=== PATIENT | male | born 1945 | race Caucasian/White ===

== ENCOUNTER 2018-03-04 09:49 | Outpatient (CLI) | payer OTHER, SELFPAY ==
[2018-03-04 11:10] LABS: Hemoglobin A1C 7.4 % (4.5-6.2)
[2018-03-04 11:19] LABS: GGT 45 U/L (15-85); Glucose 205 mg/dL (70-100)
== END 2018-03-04 10:09 ==
PROVIDERS: PCP Emergency Medicine; Visit Provider Emergency Medicine
DX: R73.09 Other abnormal glucose (principal); F10.10 Alcohol abuse, uncomplicated
CPT/HCPCS: 36415; 82947; 82977; 83036

== ENCOUNTER 2018-11-23 15:24 | Inpatient (IN) | payer OTHER, SELFPAY ==
[2018-11-23 15:27] VITALS: BP 108/67; PULSE 81; RESP 16; TEMP 36.8; O2SAT 97
--- NOTE | 2018-11-23 16:16 | W.ED.GENAD ---
Discharge Plan Disposition Patient Disposition: [facility] INPATIENT Condition: Improving Discharge Details Chief Complaint: Abd Prob Clinical Impression: Acute cholecystitis Primary Care Provider: Flavio Wick ED Provider: Moi Dobson Home Meds and New Rx's Prescriptions: No Action epinephrine 0.3 MG/0.3 ML auto-injector 0.3 mg IM PRN Qty: 3 RF: 4 betamethasone, augmented [Diprolene] 60 ML lotion 60 ml Topical DAILY Qty: 1 RF: 2 triamcinolone acetonide 60 ML lotion 60 ml Topical DAILY Qty: 1 RF: 6 omeprazole 20 mg capsule,delayed release(DR/EC) 20 mg PO DAILY Qty: 90 RF: 4 hydrocodone-acetaminophen 5-325 mg Tablet 2 tab PO Q6H RF: 0 amoxicillin-pot clavulanate 875-125 mg Tablet 1 tab PO Q12H RF: 0 Medical Decision Making This is a 73-year-old gentleman who presents today for right upper quadrant pain. 3 days ago he was seen at a [facility] where CT scan showed evidence of diverticulitis, and he was started on Augmentin. The next day he was reassessed as he had worsening pain, labs were done which showed an elevated bilirubin, no imaging at that time. Eventually discharged with concern for gallbladder pathology. He presents today for continued symptoms, he is vomiting 5 times today, he is unable to keep any solids down, but is able to take small sips of water that stays down. Pain is in the right upper quadrant, with slight radiation to his back. No tearing sensation, no chest pain. Physical exam demonstrates positive Wilde sign. Limited bedside ultrasound shows a distended gallbladder, hyperechoic edges, and a gallbladder wall thickness of 8 mm. Positive sonographic Wilde sign. We will perform laboratory evaluation, repeat CT scan for further assessment has no formal ultrasonography is present at this time, and for further differentiation of his previously diagnosed diverticulitis. Will hydrate, give Toradol for pain. 6:15 PM Laboratory work-up demonstrates no white count, platelets are low at 81. Patient states that he does drink 3 beers per day but denies any other severe or significant alcohol. No history of thrombocytopenia. Electrolytes are benign. Renal function stable. Bilirubin 1.6, conjugated 0.55. Lipase is normal. Urinalysis is negative for any evidence of significant infection. CT scan results per virtual radiology to confirm acute cholecystitis. We did contact Dr. Machado and discussed the case with her. We did confirm that platelets can be ordered for the patient. She would like the patient admitted and started on Zosyn. Expected surgery tomorrow. Patient will be made n.p.o.. Dr. Machado has asked that I put in bridging orders, and I will place these. I have extensively reviewed the treatment plan with the patient. I have addressed all patient concerns at this time. I have also discussed the plan with the admitting physician and they agree with the current assessment and plan and have agreed to assume responsibility for the patient. All parties demonstrate verbal understanding and agreement with our assessment and plan at this time. FINDINGS: Minimal basilar atelectasis. Abnormal appearing gallbladder with gallbladder wall thickening and surrounding inflammation suggesting acute cholecystitis. No biliary ductal dilatation. No bowel obstruction. No significant free fluid. Appendix is normal. Small fat-containing left inguinal hernia. No obstructive uropathy. IMPRESSION: Findings consistent with acute cholecystitis. Dictated and Authenticated by: Sascha Noriega MD. Ordering:GERARD Prater MD HPI General Date/Time Provider Initiated Documentation: 11/23/18 15:24. HPI Narrative: This is a 73-year-old male with a past medical history of BPH, previous tobacco abuse, who presents today for evaluation of abdominal pain. Pain started 3 to 4 days ago while he was vacationing in [place], at that time he went to an [facility] where he had a CT scan and labs giving him the diagnosis of diverticulitis, he was started on Augmentin. The next day his pain worsened and localized in the right upper quadrant. He returned to that same ED, labs were drawn, bilirubin was notably elevated at 1.8, no additional imaging was done at that time. No ultrasound availability at that time either per patient. He was eventually discharged home, and he returns today to our emergency department for continued pain, vomiting x5 today, anorexia with last meal being 3 days ago, and continued notable right upper quadrant pain. Pain is made worse with movement, palpation, and hitting every bump on the way up on the road. He denies any previous abdominal surgeries. He denies any fever chills hematochezia hematemesis, melena or acholic stool. He has no other complaints at this time. He has been taking the Augmentin. NSAIDs are not improving his symptoms. Related Data Home Medications Medication Instructions Recorded Confirmed epinephrine 0.3 mg IM PRN #3 01/05/13 11/23/18 betamethasone, augmented 60 ml TOPICAL DAILY #1 script 02/25/15 11/23/18 [Diprolene 0.05% Lotion] triamcinolone acetonide 60 ml TOPICAL DAILY #1 script 04/09/17 11/23/18 omeprazole 20 mg capsule,delayed 20 mg PO DAILY #90 tab-cap 02/18/18 11/23/18 release amoxicillin-pot clavulanate 1 tab PO Q12H 11/23/18 11/23/18 hydrocodone-acetaminophen 2 tab PO Q6H 11/23/18 11/23/18 Previous Rx's Medication Instructions Recorded triamcinolone acetonide 60 ml TOPICAL DAILY #1 script 04/09/17 omeprazole 20 mg capsule,delayed 20 mg PO DAILY #90 tab-cap 02/18/18 release Allergies Allergy/AdvReac Type Severity Reaction Status Date / Time venom-honey bee Allergy Severe HIVES Verified 11/23/18 15:32 General Stated Complaint: Abd Prob ANY: 3 Review of Systems Review of Systems All systems reviewed & are unremarkable except as noted in HPI and below PFSH Medical History Adenomatous colon polyp BPH (benign prostatic hypertrophy) Lumbago Surgical History Extraction of cataract Family History Mother Diabetes Heart disease Hyperlipidemia Stroke Father No problems noted. Sister No problems noted. 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 3.ENT: Atraumatic external nose and ears. Moist MM. Neck: Symmetric, trachea midline, No thyromegaly. 4.CVS: +S1/S2, No murmurs or gallops. Peripheral pulses 2+ and equal in all extremities. Brisk capillary refill in all extremities. 5.RESP: Unlabored respiratory effort. Clear to auscultation bilaterally. No wheezes rales or rhonchi 6.GI: Soft, notable right upper quadrant tenderness, mild epigastric tenderness. No right lower quadrant tenderness. No left-sided abdominal pain. No flank or CVA tenderness. Positive Wilde sign. No pain at McBurney's point. 7.MSK: Normocephalic/Atraumatic, Extremities w/o deformity or ttp No cyanosis or clubbing, Normal movement of all extremities 8.Skin: Warm, Dry. No rashes or lesions. 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 Sensation grossly intact, no focal neurologic deficits. 10.Psych: (AAO) x3. Appropriate mood and affect Course Vital Signs Temperature 36.8 C 11/23/18 15:27 Pulse 81 11/23/18 15:27 Respiratory Rate 16 11/23/18 15:27 Blood Pressure 108/67 11/23/18 15:27 Pulse Oximetry 97 11/23/18 15:27 Temperature 36.8 C 11/23/18 15:27 Temperature Source Temporal Artery Scan 11/23/18 15:27 Pulse 81 11/23/18 15:27 Respiratory Rate 16 11/23/18 15:27 Respiratory Effort Non-Labored 11/23/18 15:27 Blood Pressure 108/67 11/23/18 15:27 Blood Pressure Position Sitting 11/23/18 15:27 Pulse Oximetry 97 11/23/18 15:27 Pain Level 8 11/23/18 15:27
--- NOTE | 2018-11-23 16:23 | ED.GENADUL_ITS ---
Discharge Plan Disposition Patient Disposition: [facility] INPATIENT Condition: Improving Discharge Details Chief Complaint: Abd Prob Clinical Impression: Acute cholecystitis Primary Care Provider: Flavio Wick ED Provider: Moi Dobson Home Meds and New Rx's Prescriptions: No Action epinephrine 0.3 MG/0.3 ML auto-injector 0.3 mg IM PRN Qty: 3 RF: 4 betamethasone, augmented [Diprolene] 60 ML lotion 60 ml Topical DAILY Qty: 1 RF: 2 triamcinolone acetonide 60 ML lotion 60 ml Topical DAILY Qty: 1 RF: 6 omeprazole 20 mg capsule,delayed release(DR/EC) 20 mg PO DAILY Qty: 90 RF: 4 hydrocodone-acetaminophen 5-325 mg Tablet 2 tab PO Q6H RF: 0 amoxicillin-pot clavulanate 875-125 mg Tablet 1 tab PO Q12H RF: 0 Medical Decision Making This is a 73-year-old gentleman who presents today for right upper quadrant pain. 3 days ago he was seen at a [facility] where CT scan showed evidence of diverticulitis, and he was started on Augmentin. The next day he was reassessed as he had worsening pain, labs were done which showed an elevated bilirubin, no imaging at that time. Eventually discharged with concern for gallbladder pathology. He presents today for continued symptoms, he is vomiting 5 times today, he is unable to keep any solids down, but is able to take small sips of water that stays down. Pain is in the right upper quadrant, with slight radiation to his back. No tearing sensation, no chest pain. Physical exam demonstrates positive Wilde sign. Limited bedside ultrasound shows a distended gallbladder, hyperechoic edges, and a gallbladder wall thickness of 8 mm. Positive sonographic Wilde sign. We will perform laboratory evaluation, repeat CT scan for further assessment has no formal ultrasonography is present at this time, and for further differentiation of his previously diagnosed diverticulitis. Will hydrate, give Toradol for pain. 6:15 PM Laboratory work-up demonstrates no white count, platelets are low at 81. Rosalinad ent states that he does drink 3 beers per day but denies any other severe or significant alcohol. No history of thrombocytopenia. Electrolytes are benign. Renal function stable. Bilirubin 1.6, conjugated 0.55. Lipase is normal. Urinalysis is negative for any evidence of significant infection. CT scan results per virtual radiology to confirm acute cholecystitis. We did contact Dr. Machado and discussed the case with her. We did confirm that platelets can be ordered for the patient. She would like the patient admitted and started on Zosyn. Expected surgery tomorrow. Patient will be made n.p.o.. Dr. Machado has asked that I put in bridging orders, and I will place these. I have extensively reviewed the treatment plan with the patient. I have addressed all patient concerns at this time. I have also discussed the plan with the admitting physician and they agree with the current assessment and plan and have agreed to assume responsibility for the patient. All parties demonstrate verbal understanding and agreement with our assessment and plan at this time. FINDINGS: Minimal basilar atelectasis. Abnormal appearing gallbladder with gallbladder wall thickening and surrounding inflammation suggesting acute cholecystitis. No biliary ductal dilatation. No bowel obstruction. No significant free fluid. Appendix is normal. Small fat-containing left inguinal hernia. No obstructive uropathy. IMPRESSION: Findings consistent with acute cholecystitis. Dictated and Authenticated by: Sascha Noriega MD. Ordering:GERARD Prater MD HPI General Date/Time Provider Initiated Documentation: 11/23/18 15:24 . HPI Narrative: This is a 73-year-old male with a past medical history of BPH, previous tobacco abuse, who presents today for evaluation of abdominal pain. Pain started 3 to 4 days ago while he was vacationing in [place], at that time he went to an [facility] where he had a CT scan and labs giving him the diagnosis of diverticulitis, he was started on Augmentin. The next day his pain worsened and localized in the right upper quadrant. He returned to that same ED, labs were drawn, bilirubin was notably elevated at 1.8, no additional imaging was done at that time. No ultrasound availability at that time either per patient. He was eventually discharged home, and he returns today to our emergency department for continued pain, vomiting x5 today, anorexia with last meal being 3 days ago, and continued notable right upper quadrant pain. Pain is made worse with movement, palpation, and hitting every bump on the way up on the road. He denies any previous abdominal surgeries. He denies any fever chills hematochezia hematemesis, melena or acholic stool. He has no other complaints at this time. He has been taking the Augmentin. NSAIDs are not improving his symptoms. Related Data Home Medications Medication Instructions Recorded Confirmed epinephrine 0.3 mg IM PRN #3 01/05/13 11/23/18 betamethasone, augmented 60 ml TOPICAL DAILY #1 script 02/25/15 11/23/18 [Diprolene 0.05% Lotion] triamcinolone acetonide 60 ml TOPICAL DAILY #1 script 04/09/17 11/23/18 omeprazole 20 mg capsule,delayed 20 mg PO DAILY #90 tab-cap 02/18/18 11/23/18 release amoxicillin-pot clavulanate 1 tab PO Q12H 11/23/18 11/23/18 hydrocodone-acetaminophen 2 tab PO Q6H 11/23/18 11/23/18 Previous Rx's Medication Instructions Recorded triamcinolone acetonide 60 ml TOPICAL DAILY #1 script 04/09/17 omeprazole 20 mg capsule,delayed 20 mg PO DAILY #90 tab-cap 02/18/18 release Allergies Allergy/AdvReac Type Severity Reaction Status Date / Time venom-honey bee Allergy Severe HIVES Verified 11/23/18 15:32 General Stated Complaint: Abd Prob ANY: 3 Review of Systems Review of Systems All systems reviewed & are unremarkable except as noted in HPI and below PFSH Medical History Adenomatous colon polyp BPH (benign prostatic hypertrophy) Lumbago Surgical History Extraction of cataract Family History Mother Diabetes Heart disease Hyperlipidemia Stroke Father No problems noted. Sister No problems noted. 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 3.ENT: Atraumatic external nose and ears. Moist MM. Neck: Symmetric, trachea midline, No thyromegaly. 4.CVS: +S1/S2, No murmurs or gallops. Peripheral pulses 2+ and equal in all extremities. Brisk capillary refill in all extremities. 5.RESP: Unlabored respiratory effort. Clear to auscultation bilaterally. No wheezes rales or rhonchi 6.GI: Soft, notable right upper quadrant tenderness, mild epigastric tenderness. No right lower quadrant tenderness. No left-sided abdominal pain. No flank or CVA tenderness. Positive Wilde sign. No pain at McBurney's point. 7.MSK: Normocephalic/Atraumatic, Extremities w/o deformity or ttp No cyanosis or clubbing, Normal movement of all extremities 8.Skin: Warm, Dry. No rashes or lesions. 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 Sensation grossly intact, no focal neurologic deficits. 10.Psych: (AAO) x3. Appropriate mood and affect Course Vital Signs Temperature 36.8 C 11/23/18 15:27 Pulse 81 11/23/18 15:27 Respiratory Rate 16 11/23/18 15:27 Blood Pressure 108/67 11/23/18 15:27 Pulse Oximetry 97 11/23/18 15:27 Temperature 36.8 C 11/23/18 15:27 Temperature Source Temporal Artery Scan 11/23/18 15:27 Pulse 81 11/23/18 15:27 Respiratory Rate 16 11/23/18 15:27 Respiratory Effort Non-Labored 11/23/18 15:27 Blood Pressure 108/67 11/23/18 15:27 Blood Pressure Position Sitting 11/23/18 15:27 Pulse Oximetry 97 11/23/18 15:27 Pain Level 8 11/23/18 15:27
[2018-11-23 16:40] LABS: Abs Immature Grans 0.04 k/cumm (0.0-0.09); Absolute Eosinophil Count 0.01 k/cumm (0.0-0.7); Absolute Lymphocyte Count 0.39 k/cumm (1.2-3.4); Absolute Monocyte Count 1.27 k/cumm (0.11-0.7); Absolute Neutrophil Count 6.99 k/cumm (1.2-6.7); Eosinophils % 0.1; HCT 43.7 % (40.0-50.0); HGB 15.1 g/dL (13.5-17.5); Immature Grans % 0.5; Lymphocytes % 4.5; Mean Corp. HGB Concentration 34.6 g/dL (32.0-36.0); Mean Corpuscular Hemoglobin 32.1 pg (27.0-33.0); Mean Corpuscular Volume 92.8 fL (80-95); Mean Platelet Volume 11.6 fL (8.0-11.0); Monocytes % 14.6; Neutrophils % 80.3; RBC 4.71 m/cumm (4.50-6.00); RBC Distribution Width 12.2 % (11.8-14.1)
[2018-11-23 16:43] LABS: Platelet Count 81 x1000/uL (130-400)
[2018-11-23 16:50] LABS: Lipase 63 U/L (73-393)
[2018-11-23 16:51] LABS: Bilirubin, Direct 0.55 mg/dL (0.00-0.20)
[2018-11-23 16:53] LABS: ALT 47 U/L (12-78); AST 29 U/L (15-37); Albumin 3.4 g/dL (3.4-5.0); Alkaline Phosphatase 60 U/L (46-116); Anion Gap 9.6 mmol/L (3-11); BUN 17 mg/dL (7-18); Bilirubin, Total 1.6 mg/dL (0.2-1.0); CO2 27.4 mmol/L (21.0-32.0); CREATININE 1.09 mg/dL (0.70-1.30); Calcium 8.6 mg/dL (8.5-10.1); Chloride 95 mmol/L (98-107); Glucose 152 mg/dL (70-100); Sodium 132 mmol/L (136-145); Total Protein 7.6 g/dL (6.4-8.2)
[2018-11-23 17:02] LABS: Diff Comment PLT Morph Reviewed; RBC Morphology Normal
[2018-11-23] MEDS: Omnipaque 350 MG/ML 100 ML BTL IJ (17:30)
--- NOTE | 2018-11-23 17:35 | DI.CT_ITS ---
SYMPTOM/DIAGNOSIS: RUQ PAIN, THICKENED GB WALL, RECENT DIVERTICULITIS CT ABDOMEN AND PELVIS: There are no prior comparison exams. Images were performed from the lung bases through the ischial tuberosities after IV and without oral contrast. The gallbladder is abnormally distended and shows wall thickening as well as stranding in the surrounding fat. No calcified stones or biliary dilatation is seen. The liver shows mild diffuse fatty infiltration. The spleen, pancreas, adrenals and kidneys are unremarkable. The appendix appears normal. There is no bowel dilatation or inflammatory changes. The bladder and prostate are unremarkable. There is a small fatty containing left inguinal hernia. The aorta is normal in diameter and shows mild calcification. There are mild degenerative change in the spine. The lung bases show mild dependent changes and atelectasis. IMPRESSION: Findings are consistent with acute cholecystitis. No biliary dilatation is seen.
[2018-11-23] MEDS: Normal Saline 1,000 ML 1000 ML IV (17:43)
[2018-11-23] MEDS: Ketorolac 30 MG/ML VIAL IVP (17:44)
[2018-11-23] MEDS: Normal Saline Flush 10 ML SYR IVP ×2 (17:44→20:33)
[2018-11-23 17:47] LABS: Bilirubin Small (Negative); Blood Trace-intact (Negative); Clarity Clear; Glucose Negative (Negative); Ketones 40 mg/dL (Negative); Leukocyte Esterase Negative (Negative); Nitrite Negative (Negative); Specific Gravity 1.015 (1.005-1.025); pH 5.5 (5-8)
[2018-11-23 17:50] LABS: Bacteria Negative HPF (Negative); C & S Indicated? Yes; Casts Negative LPF (Negative); Crystals Negative HPF (Negative); Epithelial Cells Rare HPF (Negative); Mucus Negative (Negative); RBC 0-2 (0-2)
--- NOTE | 2018-11-23 18:00 | DI.VRAD_ITS ---
EXAM: CT Abdomen and Pelvis With Contrast EXAM DATE/TIME: 11/23/2018 4:15 PM CLINICAL HISTORY: 73 years old, male; Abdominal pain; Localized; Right upper quadrant (ruq); Patient HX: Ruq, thickness on gb wall, recent diverticulitis. TECHNIQUE: Imaging protocol: Axial computed tomography images of the abdomen and pelvis with intravenous contrast. Coronal and sagittal reformatted images were created and reviewed. Radiation optimization: All CT scans at this facility use at least one of these dose optimization techniques: automated exposure control; mA and/or kV adjustment per patient size (includes targeted exams where dose is matched to clinical indication); or iterative reconstruction. Contrast material: OMNIPAQUE 350; Contrast volume: 100 ml; Contrast route: IV; COMPARISON: No relevant prior studies available. FINDINGS: Minimal basilar atelectasis. Abnormal appearing gallbladder with gallbladder wall thickening and surrounding inflammation suggesting acute cholecystitis. No biliary ductal dilatation. No bowel obstruction. No significant free fluid. Appendix is normal. Small fat-containing left inguinal hernia. No obstructive uropathy. IMPRESSION: Findings consistent with acute cholecystitis. Dictated and Authenticated by: Sascha Noriega MD. Ordering:GERARD Prater MD
[2018-11-23] MEDS: PIPERACILLIN/TAZO 3.375 GM in Normal Saline 50 ML IVPB (18:26)
--- NOTE | 2018-11-23 18:31 | NUR.NOTE ---
pt medicated as per mdo iv antibiotics infusing Nursing Note:
[2018-11-23 19:16] VITALS: BP 97/52; PULSE 73; RESP 16; O2SAT 95
[2018-11-23 19:21] VITALS: BP 97/52; PULSE 73; RESP 16; O2SAT 95
[2018-11-23 19:33] VITALS: BP 111/73; PULSE 77; RESP 16; TEMP 35.8; O2SAT 94
[2018-11-23 19:34] VITALS: BP 111/73; PULSE 77; RESP 16; TEMP 35.8; O2SAT 94
--- NOTE | 2018-11-23 20:10 | W.PM.HP.N ---
Date of service: 11/23/18 Time of Service: 20:11 Assessment and Plan (1) Acute cholecystitis: Current visit: Yes Status: Acute 73 y/o male with findings of acute cholecystitis on imaging and by history. I reviewed CT films and agree with ADS interpretation. No gallstones or bile duct dilation noted. No signs of diverticulitis. Admitted for IV antibiotics, IVF, bowel rest. Patient started on Zosyn. LFTs and lipase unremarkable except for total bilirubin of 1.6 with 0.6 direct component. Anticipate lap samantha on this admission. Will sign out to Dr. Mahmood in the am. (2) Thrombocytopenia: Current visit: Yes Status: Chronic Thrombocytopenia with 81k platelet count. Decreased from 180k from 2017. ? drug related. Follow-up CBC in am. Patient is typed and screened. I am told that platelets can be ordered from [facility] if needed. May need further workup if persistent. (3) Heavy alcohol use: Current visit: No Status: Acute CIWA protocol ordered. History of Present Illness Chief Complaint: Abdominal pain Narrative: 73 y/o male admitted through the ED at [facility]. Patient seen with 2 adult children at bedside. Patient apparently had had some intermittent abdominal discomfort for the past week or so. He was out of town in [place], [place] on Saturday ( 2 days ago) when he developed severe RUQ pain. He noted some subjective fevers and chills with low grade temp up to 99.5 (+) nausea and emesis. Last emesis was yesterday. He is tolerating water but has not tried to eat in 2 days for fear of pain. He was seen in the ED in [place] on 11/21/[address]. He was diagnosed with possible diverticulitis and started on Augmentin which he has been taking. His pain worsened on 11/22/18 and he returned to the same ED. He was told that there was no ultrasound available and that he may have to be transferred to another facility. He decided to return home to [place] and came to the ED at [facility] today. His pain has remained localized in the RUQ. He denies constipation or urinary symptoms. He denies any history of similar pain or fatty food intolerance. Total bilirubin was reportedly mildly elevated at 1.8 in [place]. It is 1.6 today. His platelet count was also noted to be below normal at 81K. It was last documented at 180k in 2017. He denies any known history of thrombocytopenia. He is on Prilosec for GERD. He denies any other chronic medical issues. He has had no prior abdominal surgeries. He had an EGD and colonoscopy about 3 years ago. He admits to drinking an average of 3 beers/day. Review of Systems Constitutional Reports system reviewed and no additional complaints, except as docu, Reports chills and Reports fever(s) Cardiovascular Denies chest pain, Denies rapid heart rate and Denies dyspnea Respiratory Denies cough and Denies dyspnea Gastrointestinal Reports abdominal pain, Denies constipation, Reports heartburn, Reports nausea and Reports vomiting Genitourinary Denies hematuria and Denies dysuria [facility] Medical History Adenomatous colon polyp BPH (benign prostatic hypertrophy) Lumbago Surgical History Extraction of cataract Family History Mother Diabetes Heart disease Hyperlipidemia Stroke Father No problems noted. Sister No problems noted. 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 Pets and animals: No What type of physical activity do you participate in: decline to answer Dorothy/Evangelical: Religious Special dorothy needs: No Do you feel safe at home: Yes Do you feel safe in your relationship?: Yes Meds Home Medications Medication Instructions Recorded Confirmed Type epinephrine 0.3 mg IM PRN #3 01/05/13 11/23/18 History betamethasone, augmented 60 ml TOPICAL DAILY #1 script 02/25/15 11/23/18 History [Diprolene 0.05% Lotion] triamcinolone acetonide 60 ml TOPICAL DAILY #1 script 04/09/17 11/23/18 Rx omeprazole 20 mg capsule,delayed 20 mg PO DAILY #90 tab-cap 02/18/18 11/23/18 Rx release amoxicillin-pot clavulanate 1 tab PO Q12H 11/23/18 11/23/18 History hydrocodone-acetaminophen 2 tab PO Q6H 11/23/18 11/23/18 History Allergies Allergy/AdvReac Type Severity Reaction Status Date / Time venom-honey bee Allergy Severe HIVES Verified 11/23/18 15:32 Exam Const General: cooperative, comfortable, no acute distress and well developed Nutritional Appearance: obese Orientation: alert and oriented x3 HENMT Head: normocephalic and atraumatic Eyes Sclera: sclerae normal Neck Neck: supple, no tracheal deviation and no JVD Resp Effort & Inspection: normal respiratory effort and able to speak in complete sentences Cardio Jugular venous pressure: no JVD Rate: regular rate Rhythm: regular rhythm GI Inspection: non-distended Palpation: soft, not firm, no guarding, no masses, not rigid and tender in the RUQ (moderately tender in epigastrium and RUQ) and Wilde's sign positive Skin General skin exam: no rashes or lesions noted and no jaundice Results Imaging Abdomen CT scan report/results: report reviewed and image reviewed CT scan - pelvis: report reviewed and image reviewed Imaging Studies: Patient Name: Gricelda MAI #: [id number]: ER Ordering Provider: : REG ER Primary Care Provider: Flavio Wick of Exam: 11/23/18Sex: M : 1945ge: 73 Exam(s) EXAM: CT Abdomen and Pelvis With Contrast EXAM DATE/TIME: 11/23/2018 4:15 PM CLINICAL HISTORY: 73 years old, male; Abdominal pain; Localized; Right upper quadrant (ruq); Patient HX: Ruq, thickness on gb wall, recent diverticulitis. TECHNIQUE: Imaging protocol: Axial computed tomography images of the abdomen and pelvis with intravenous contrast. Coronal and sagittal reformatted images were created and reviewed. Radiation optimization: All CT scans at this facility use at least one of these dose optimization techniques: automated exposure control; mA and/or kV adjustment per patient size (includes targeted exams where dose is matched to clinical indication); or iterative reconstruction. Contrast material: OMNIPAQUE 350; Contrast volume: 100 ml; Contrast route: IV; COMPARISON: No relevant prior studies available. FINDINGS: Minimal basilar atelectasis. Abnormal appearing gallbladder with gallbladder wall thickening and surrounding inflammation suggesting acute cholecystitis. No biliary ductal dilatation. No bowel obstruction. No significant free fluid. Appendix is normal. Small fat-containing left inguinal hernia. No obstructive uropathy. IMPRESSION: Findings consistent with acute cholecystitis. Dictated and Authenticated by: Sascha Noriega MD. Ordering:GERARD Prater MD Ordered By: CC: Dictated By: Reports vrad 11/23/18 1615 11/23/18 1800 Transcribed By: Emily Thomas This is privileged, confidential information intended only for the provider named. Any use or distribution by any person other than this provider is strictly prohibited. If you receive this report in error, please notify us immediately at [phone] and return the original report to us at the address above. Thank-you. Labs : 11/23/18 16:29 11/23/18 16:29 Laboratory Results - last 24 hr 11/23/18 11/23/18 11/23/18 16:29 16:29 16:29 WBC 8.70 RBC 4.71 Hgb 15.1 Hct 43.7 MCV 92.8 MCH 32.1 MCHC 34.6 RDW 12.2 Plt Count 81 L MPV 11.6 H Immature Gran % 0.5 Neutrophils % 80.3 Lymphocytes % 4.5 Monocytes % 14.6 Eosinophils % 0.1 Basophils % 0.0 Absolute Neutrophils 6.99 H Absolute Lymphocytes 0.39 L Absolute Monocytes 1.27 H Absolute Eosinophils 0.01 Absolute Basophils 0.00 Differential Comment Plt morph reviewed RBC Morphology Normal Sodium 132 L Potassium 4.0 Chloride 95 L Carbon Dioxide 27.4 Anion Gap 9.6 BUN 17 Creatinine 1.09 Estimated GFR/1.73 m2 >= 60.00 Glucose 152 H Calcium 8.6 Total Bilirubin 1.6 H Conjugated Bilirubin 0.55 H AST 29 ALT 47 Alkaline Phosphatase 60 Total Protein 7.6 Albumin 3.4 Lipase Urine Color Urine Clarity Urine pH Ur Specific [place] Urine Protein Urine Ketones Urine Blood Urine Nitrite Urine Bilirubin Urine Urobilinogen Ur Leukocyte Esterase Urine RBC Urine WBC Ur Epithelial Cells Urine Crystals Urine Bacteria Urine Casts Urine Mucus Ur Culture Indicated? Urine Glucose 11/23/18 11/23/18 16:29 17:33 WBC RBC Hgb Hct MCV MCH MCHC RDW Plt Count MPV Immature Gran % Neutrophils % Lymphocytes % Monocytes % Eosinophils % Basophils % Absolute Neutrophils Absolute Lymphocytes Absolute Monocytes Absolute Eosinophils Absolute Basophils Differential Comment RBC Morphology Sodium Potassium Chloride Carbon Dioxide Anion Gap BUN Creatinine Estimated GFR/1.73 m2 Glucose Calcium Total Bilirubin Conjugated Bilirubin AST ALT Alkaline Phosphatase Total Protein Albumin Lipase 63 L Urine Color Radha Urine Clarity Clear Urine pH 5.5 Ur Specific [place] 1.015 Urine Protein 30 H Urine Ketones 40 H Urine Blood Trace-intact H Urine Nitrite Negative Urine Bilirubin Small H Urine Urobilinogen 1.0 H Ur Leukocyte Esterase Negative Urine RBC 0-2 Urine WBC 5-10 Ur Epithelial Cells Rare Urine Crystals Negative Urine Bacteria Negative Urine Casts Negative Urine Mucus Negative Ur Culture Indicated? Yes Urine Glucose Negative Last Vital Signs Temp 35.8 C L 11/23/18 19:34 Pulse 77 11/23/18 19:34 Resp 16 11/23/18 19:34 BP 111/73 11/23/18 19:34 Pulse Ox 94 L 11/23/18 19:34
--- NOTE | 2018-11-23 20:17 | HPE_ITS ---
Date of service: 11/23/18 Time of Service: 20:11 Assessment and Plan (1) Acute cholecystitis: Current visit: Yes Status: Acute 73 y/o male with findings of acute cholecystitis on imaging and by history. I reviewed CT films and agree with ADS interpretation. No gallstones or bile duct dilation noted. No signs of diverticulitis. Admitted for IV antibiotics, IVF, bowel rest. Patient started on Zosyn. LFTs and lipase unremarkable except for total bilirubin of 1.6 with 0.6 direct component. Anticipate lap samantha on this admission. Will sign out to Dr. Mahmood in the am. (2) Thrombocytopenia: Current visit: Yes Status: Chronic Thrombocytopenia with 81k platelet count. Decreased from 180k from 2017. ? drug related. Follow-up CBC in am. Patient is typed and screened. I am told that platelets can be ordered from [facility] if needed. May need further workup if persistent. (3) Heavy alcohol use: Current visit: No Status: Acute CIWA protocol ordered. History of Present Illness Chief Complaint: Abdominal pain Narrative: 73 y/o male admitted through the ED at [facility]. Patient seen with 2 adult children at bedside. Patient apparently had had some intermittent abdominal discomfort for the past week or so. He was out of town in [place], [place] on Saturday ( 2 days ago) when he developed severe RUQ pain. He noted some subjective fevers and chills with low grade temp up to 99.5 (+) nausea and emesis. Last emesis was yesterday. He is tolerating water but has not tried to eat in 2 days for fear of pain. He was seen in the ED in [place] on 11/21/[address] done. He was diagnosed with possible diverticulitis and started on Augmentin which he has been taking. His pain worsened on 11/22/18 and he returned to the same ED. He was told that there was no ultrasound available and that he may have to be transferred to another facility. He decided to return home to [place] and came to the ED at [facility] today. His pain has remained localized in the RUQ. He denies constipation or urinary symptoms. He denies any history of similar pain or fatty food intolerance. Total bilirubin was reportedly mildly elevated at 1.8 in [place]. It is 1.6 today. His platelet count was also noted to be below normal at 81K. It was last documented at 180k in 2017. He denies any known history of thrombocytopenia. He is on Prilosec for GERD. He denies any other chronic medical issues. He has had no prior abdominal surgeries. He had an EGD and colonoscopy about 3 years ago. He admits to drinking an average of 3 beers/day. Review of Systems Constitutional Reports system reviewed and no additional complaints, except as docu, Reports chills and Reports fever(s) Cardiovascular Denies chest pain, Denies rapid heart rate and Denies dyspnea Respiratory Denies cough and Denies dyspnea Gastrointestinal Reports abdominal pain, Denies constipation, Reports heartburn, Reports nausea and Reports vomiting Genitourinary Denies hematuria and Denies dysuria [facility] Medical History Adenomatous colon polyp BPH (benign prostatic hypertrophy) Lumbago Surgical History Extraction of cataract Family History Mother Diabetes Heart disease Hyperlipidemia Stroke Father No problems noted. Sister No problems noted. 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 Pets and animals: No What type of physical activity do you participate in: decline to answer Dorothy/Cheondoism: Anabaptism Special dorothy needs: No Do you feel safe at home: Yes Do you feel safe in your relationship?: Yes Meds Home Medications Medication Instructions Recorded Confirmed Type epinephrine 0.3 mg IM PRN #3 01/05/13 11/23/18 History betamethasone, augmented 60 ml TOPICAL DAILY #1 script 02/25/15 11/23/18 History [Diprolene 0.05% Lotion] triamcinolone acetonide 60 ml TOPICAL DAILY #1 script 04/09/17 11/23/18 Rx omeprazole 20 mg capsule,delayed 20 mg PO DAILY #90 tab-cap 02/18/18 11/23/18 Rx release amoxicillin-pot clavulanate 1 tab PO Q12H 11/23/18 11/23/18 History hydrocodone-acetaminophen 2 tab PO Q6H 11/23/18 11/23/18 History Allergies Allergy/AdvReac Type Severity Reaction Status Date / Time venom-honey bee Allergy Severe HIVES Verified 11/23/18 15:32 Exam Const General: cooperative, comfortable, no acute distress and well developed Nutritional Appearance: obese Orientation: alert and oriented x3 HENMT Head: normocephalic and atraumatic Eyes Sclera: sclerae normal Neck Neck: supple, no tracheal deviation and no JVD Resp Effort & Inspection: normal respiratory effort and able to speak in complete sentences Cardio Jugular venous pressure: no JVD Rate: regular rate Rhythm: regular rhythm GI Inspection: non-distended Palpation: soft, not firm, no guarding, no masses, not rigid and tender in the RUQ (moderately tender in epigastrium and RUQ) and Wilde's sign positive Skin General skin exam: no rashes or lesions noted and no jaundice Results Imaging Abdomen CT scan report/results: report reviewed and image reviewed CT scan - pelvis: report reviewed and image reviewed Imaging Studies: Patient Name: Gricelda MAI #: [id number]: ER Ordering Provider: : REG ER Primary Care Provider: Flavio Wick of Exam: 11/23/18Sex: M : 1945ge: 73 Exam(s) EXAM: CT Abdomen and Pelvis With Contrast EXAM DATE/TIME: 11/23/2018 4:15 PM CLINICAL HISTORY: 73 years old, male; Abdominal pain; Localized; Right upper quadrant (ruq); Patient HX: Ruq, thickness on gb wall, recent diverticulitis. TECHNIQUE: Imaging protocol: Axial computed tomography images of the abdomen and pelvis with intravenous contrast. Coronal and sagittal reformatted images were created and reviewed. Radiation optimization: All CT scans at this facility use at least one of these dose optimization techniques: automated exposure control; mA and/or kV adjustment per patient size (includes targeted exams where dose is matched to clinical indication); or iterative reconstruction. Contrast material: OMNIPAQUE 350; Contrast volume: 100 ml; Contrast route: IV; COMPARISON: No relevant prior studies available. FINDINGS: Minimal basilar atelectasis. Abnormal appearing gallbladder with gallbladder wall thickening and surrounding inflammation suggesting acute cholecystitis. No biliary ductal dilatation. No bowel obstruction. No significant free fluid. Appendix is normal. Small fat-containing left inguinal hernia. No obstructive uropathy. IMPRESSION: Findings consistent with acute cholecystitis. Dictated and Authenticated by: Sascha Noriega MD. Ordering:GERARD Prater MD Ordered By: CC: Dictated By: Reports vrad 11/23/18 1615 11/23/18 1800 Transcribed By: Emily Thomas This is privileged, confidential information intended only for the provider named. Any use or distribution by any person other than this provider is strictly prohibited. If you receive this report in error, please notify us immediately at [phone] and return the original report to us at the address above. Thank-you. Labs : 11/23/18 16:29 11/23/18 16:29 Laboratory Results - last 24 hr 11/23/18 11/23/18 11/23/18 16:29 16:29 16:29 WBC 8.70 RBC 4.71 Hgb 15.1 Hct 43.7 MCV 92.8 MCH 32.1 MCHC 34.6 RDW 12.2 Plt Count 81 L MPV 11.6 H Immature Gran % 0.5 Neutrophils % 80.3 Lymphocytes % 4.5 Monocytes % 14.6 Eosinophils % 0.1 Basophils % 0.0 Absolute Neutrophils 6.99 H Absolute Lymphocytes 0.39 L Absolute Monocytes 1.27 H Absolute Eosinophils 0.01 Absolute Basophils 0.00 Differential Comment Plt morph reviewed RBC Morphology Normal Sodium 132 L Potassium 4.0 Chloride 95 L Carbon Dioxide 27.4 Anion Gap 9.6 BUN 17 Creatinine 1.09 Estimated GFR/1.73 m2 >= 60.00 Glucose 152 H Calcium 8.6 Total Bilirubin 1.6 H Conjugated Bilirubin 0.55 H AST 29 ALT 47 Alkaline Phosphatase 60 Total Protein 7.6 Albumin 3.4 Lipase Urine Color Urine Clarity Urine pH Ur Specific [place] Urine Protein Urine Ketones Urine Blood Urine Nitrite Urine Bilirubin Urine Urobilinogen Ur Leukocyte Esterase Urine RBC Urine WBC Ur Epithelial Cells Urine Crystals Urine Bacteria Urine Casts Urine Mucus Ur Culture Indicated? Urine Glucose 11/23/18 11/23/18 16:29 17:33 WBC RBC Hgb Hct MCV MCH MCHC RDW Plt Count MPV Immature Gran % Neutrophils % Lymphocytes % Monocytes % Eosinophils % Basophils % Absolute Neutrophils Absolute Lymphocytes Absolute Monocytes Absolute Eosinophils Absolute Basophils Differential Comment RBC Morphology Sodium Potassium Chloride Carbon Dioxide Anion Gap BUN Creatinine Estimated GFR/1.73 m2 Glucose Calcium Total Bilirubin Conjugated Bilirubin AST ALT Alkaline Phosphatase Total Protein Albumin Lipase 63 L Urine Color Radha Urine Clarity Clear Urine pH 5.5 Ur Specific [place] 1.015 Urine Protein 30 H Urine Ketones 40 H Urine Blood Trace-intact H Urine Nitrite Negative Urine Bilirubin Small H Urine Urobilinogen 1.0 H Ur Leukocyte Esterase Negative Urine RBC 0-2 Urine WBC 5-10 Ur Epithelial Cells Rare Urine Crystals Negative Urine Bacteria Negative Urine Casts Negative Urine Mucus Negative Ur Culture Indicated? Yes Urine Glucose Negative Last Vital Signs Temp 35.8 C L 11/23/18 19:34 Pulse 77 11/23/18 19:34 Resp 16 11/23/18 19:34 BP 111/73 11/23/18 19:34 Pulse Ox 94 L 11/23/18 19:34
[2018-11-23] MEDS: HYDROmorphone 2 MG/ML VIAL 1 MG IVP (20:32)
[2018-11-23] MEDS: Lactated Ringers 1,000 ML 125 ML IV (20:33)
[2018-11-24] VITALS (8 sets, daily range): BP systolic 96–132; BP diastolic 63–78; PULSE 56–73; RESP 14–18; TEMP 36.1–37.8; O2SAT 73–97
[2018-11-24] MEDS: PIPERACILLIN/TAZO 3.375 GM in Normal Saline 50 ML IVPB ×5 (00:04→23:48)
[2018-11-24] MEDS: Normal Saline Flush 10 ML SYR IVP ×8 (00:05→23:48)
[2018-11-24] MEDS: HYDROmorphone 2 MG/ML VIAL 1 MG IVP (05:12)
[2018-11-24] MEDS: Lactated Ringers 1,000 ML 125 ML IV ×2 (05:13→16:12)
[2018-11-24 07:05] LABS: Abs Immature Grans 0.02 k/cumm (0.0-0.09); Absolute Eosinophil Count 0.02 k/cumm (0.0-0.7); Absolute Lymphocyte Count 0.38 k/cumm (1.2-3.4); Absolute Monocyte Count 1.01 k/cumm (0.11-0.7); Absolute Neutrophil Count 3.89 k/cumm (1.2-6.7); Eosinophils % 0.4; HGB 13.3 g/dL (13.5-17.5); Immature Grans % 0.4; Lymphocytes % 7.1; Mean Corpuscular Hemoglobin 32.4 pg (27.0-33.0); Mean Corpuscular Volume 92.7 fL (80-95); Mean Platelet Volume 12.2 fL (8.0-11.0); Neutrophils % 73.1; RBC Distribution Width 11.8 % (11.8-14.1); White Blood Cell Count 5.32 k/cumm (4.4-10.8)
[2018-11-24 07:15] LABS: ALT 81 U/L (12-78); AST 79 U/L (15-37); Albumin 2.4 g/dL (3.4-5.0); Alkaline Phosphatase 105 U/L (46-116); Anion Gap 15.7 mmol/L (3-11); BUN 16 mg/dL (7-18); CO2 22.3 mmol/L (21.0-32.0); CREATININE 1.05 mg/dL (0.70-1.30); Calcium 7.6 mg/dL (8.5-10.1); Chloride 99 mmol/L (98-107); Glucose 136 mg/dL (70-100); Potassium 3.9 mmol/L (3.5-5.1); Sodium 137 mmol/L (136-145); Total Protein 5.9 g/dL (6.4-8.2)
[2018-11-24 08:09] LABS: Platelet Count 69 x1000/uL (130-400)
--- NOTE | 2018-11-24 09:21 | PGE_ITS ---
Date of Service Date of service: 11/24/18 Time of Service: 09:20 Assessment and Plan (1) Acute cholecystitis: Current visit: Yes Status: Acute A\\ Acute Cholecystitis with increase in his T. Bili P\\ US of the abdomen to ensure the bile ducts are not dilated and there isn't a stone. Discussed with patient the lab findings this morning. I discussed continuing NPO status at this time. Depending on the US results he may need an MRCP vs ERCP at [facility]. Surgery to be planned depending on US results. Also discussed the need for platelets secondary to his thrombocytopenia that is a new finding. (2) Thrombocytopenia: Current visit: Yes Status: Chronic A\\ PLT lower today (80,000 to 61,000) P\\ Recheck labs in the am Will order one unit of PLTS to transfuse If PLTs are lower tomorrow may need a second unit ordered vs transfer to [facility] or [facility] Will let the Lab know in the morning if we need another unit Subjective Interval history since last seen: Mr. William is doing OK. He feels thirsty. His pain is the same as yesterday when he was admitted. No Nausea or Vomiting. Low grade fevers noted Exam Const General: cooperative and no acute distress Orientation: alert and oriented x3 Eyes Sclera: scleral abnormality bilaterally (jaundice) Pupils: PERRL Resp Effort & Inspection: normal respiratory effort Auscultation: clear to auscultation bilaterally Cardio Rate: regular rate Rhythm: regular rhythm Heart Sounds: no gallops, no murmurs and no rubs GI Inspection: normal to inspection Palpation: soft, no hepatosplenomegaly and tender in the RUQ and Wilde's sign positive; with no rebound tenderness Auscultation: normal bowel sounds Objective Objective Clinical Data: Abnormal lab results 11/23/18 11/23/18 11/23/18 Range/Units 16:29 16:29 16:29 RBC (4.50-6.00) m/cumm Hgb (13.5-17.5) g/dL Hct (40.0-50.0) % Plt Count 81 L (130-400) x1000/uL MPV 11.6 H (8.0-11.0) fL Absolute Neutrophils 6.99 H (1.2-6.7) k/cumm Absolute Lymphocytes 0.39 L (1.2-3.4) k/cumm Absolute Monocytes 1.27 H (0.11-0.7) k/cumm Sodium 132 L (136-145) mmol/L Chloride 95 L (98-107) mmol/L Anion Gap (3-11) mmol/L Glucose 152 H (70-100) mg/dL Calcium (8.5-10.1) mg/dL Total Bilirubin 1.6 H (0.2-1.0) mg/dL Conjugated Bilirubin 0.55 H (0.00-0.20) mg/dL AST (15-37) U/L ALT (12-78) U/L Total Protein (6.4-8.2) g/dL Albumin (3.4-5.0) g/dL Lipase (73-393) U/L Urine Protein (Negative) mg/dL Urine Ketones (Negative) mg/dL Urine Blood (Negative) Urine Bilirubin (Negative) Urine Urobilinogen (Up TO 0.2) EU/dL 11/23/18 11/23/18 11/24/18 Range/Units 16:29 17:33 06:40 RBC (4.50-6.00) m/cumm Hgb (13.5-17.5) g/dL Hct (40.0-50.0) % Plt Count (130-400) x1000/uL MPV (8.0-11.0) fL Absolute Neutrophils (1.2-6.7) k/cumm Absolute Lymphocytes (1.2-3.4) k/cumm Absolute Monocytes (0.11-0.7) k/cumm Sodium (136-145) mmol/L Chloride (98-107) mmol/L Anion Gap 15.7 H (3-11) mmol/L Glucose 136 H (70-100) mg/dL Calcium 7.6 L (8.5-10.1) mg/dL Total Bilirubin 4.0 H (0.2-1.0) mg/dL Conjugated Bilirubin (0.00-0.20) mg/dL AST 79 H (15-37) U/L ALT 81 H (12-78) U/L Total Protein 5.9 L (6.4-8.2) g/dL Albumin 2.4 L (3.4-5.0) g/dL Lipase 63 L (73-393) U/L Urine Protein 30 H (Negative) mg/dL Urine Ketones 40 H (Negative) mg/dL Urine Blood Trace-intact H (Negative) Urine Bilirubin Small H (Negative) Urine Urobilinogen 1.0 H (Up TO 0.2) EU/dL 11/24/18 Range/Units 06:40 RBC 4.10 L (4.50-6.00) m/cumm Hgb 13.3 L (13.5-17.5) g/dL Hct 38.0 L (40.0-50.0) % Plt Count 69 L (130-400) x1000/uL MPV 12.2 H (8.0-11.0) fL Absolute Neutrophils (1.2-6.7) k/cumm Absolute Lymphocytes 0.38 L (1.2-3.4) k/cumm Absolute Monocytes 1.01 H (0.11-0.7) k/cumm Sodium (136-145) mmol/L Chloride (98-107) mmol/L Anion Gap (3-11) mmol/L Glucose (70-100) mg/dL Calcium (8.5-10.1) mg/dL Total Bilirubin (0.2-1.0) mg/dL Conjugated Bilirubin (0.00-0.20) mg/dL AST (15-37) U/L ALT (12-78) U/L Total Protein (6.4-8.2) g/dL Albumin (3.4-5.0) g/dL Lipase (73-393) U/L Urine Protein (Negative) mg/dL Urine Ketones (Negative) mg/dL Urine Blood (Negative) Urine Bilirubin (Negative) Urine Urobilinogen (Up TO 0.2) EU/dL Vital Signs Temperature 100.0 F H 11/24/18 04:10 Temperature Source Tympanic 11/24/18 04:10 Pulse 73 11/24/18 04:10 Respiratory Rate 18 11/24/18 04:10 Respiratory Effort 11/23/18 19:34 Respiratory Depth Normal 11/23/18 19:34 Respiratory Pattern Normal 11/23/18 19:34 Blood Pressure 103/66 11/24/18 04:10 Blood Pressure Position Sitting 06/23/19 15:27 Pulse Oximetry 73 L 06/24/19 04:10 Oxygen Delivery Method Room Air 11/24/18 04:10 Oxygen Flow Rate 0 11/24/18 04:10 Pain Level 8 11/24/18 05:12 Intake & Output 11/23/18 11/23/18 11/24/18 11:59 23:59 11:59 Intake Total 1050 / 1050 1100 / 1100 Balance 1050 / 1050 1100 / 1100 Weight 212 lb 0.015 oz 208 lb 15.971 oz Intake: IV 1050 / 1050 1100 / 1100 Other: Urine Appearance Clear Laboratory Results WBC 5.32 k/cumm (4.4-10.8) D 11/24/18 06:40 RBC 4.10 m/cumm (4.50-6.00) L 11/24/18 06:40 Hgb 13.3 g/dL (13.5-17.5) L 11/24/18 06:40 Hct 38.0 % (40.0-50.0) L 11/24/18 06:40 MCV 92.7 fL (80-95) 11/24/18 06:40 MCH 32.4 pg (27.0-33.0) 11/24/18 06:40 MCHC 35.0 g/dL (32.0-36.0) 11/24/18 06:40 RDW 11.8 % (11.8-14.1) 11/24/18 06:40 Plt Count 69 x1000/uL (130-400) L 11/24/18 06:40 MPV 12.2 fL (8.0-11.0) H 11/24/18 06:40 Immature Gran % 0.4 11/24/18 06:40 Neutrophils % 73.1 11/24/18 06:40 Lymphocytes % 7.1 11/24/18 06:40 Monocytes % 19.0 11/24/18 06:40 Eosinophils % 0.4 11/24/18 06:40 Basophils % 0.0 11/24/18 06:40 Absolute Neutrophils 3.89 k/cumm (1.2-6.7) 11/24/18 06:40 Absolute Lymphocytes 0.38 k/cumm (1.2-3.4) L 11/24/18 06:40 Absolute Monocytes 1.01 k/cumm (0.11-0.7) H 11/24/18 06:40 Absolute Eosinophils 0.02 k/cumm (0.0-0.7) 11/24/18 06:40 Absolute Basophils 0.00 k/cumm (0.0-0.2) 11/24/18 06:40 Differential Comment Plt morph reviewed 11/23/18 16:29 RBC Morphology Normal 11/23/18 16:29 Sodium 137 mmol/L (136-145) 11/24/18 06:40 Potassium 3.9 mmol/L (3.5-5.1) 11/24/18 06:40 Chloride 99 mmol/L (98-107) 11/24/18 06:40 Carbon Dioxide 22.3 mmol/L (21.0-32.0) 11/24/18 06:40 Anion Gap 15.7 mmol/L (3-11) H 11/24/18 06:40 BUN 16 mg/dL (7-18) 11/24/18 06:40 Creatinine 1.05 mg/dL (0.70-1.30) 11/24/18 06:40 Estimated GFR/1.73 m2 >= 60.00 (mL/min/1.73m2) 11/24/18 06:40 Glucose 136 mg/dL (70-100) H 11/24/18 06:40 Calcium 7.6 mg/dL (8.5-10.1) L 11/24/18 06:40 Total Bilirubin 4.0 mg/dL (0.2-1.0) H 11/24/18 06:40 Conjugated Bilirubin 0.55 mg/dL (0.00-0.20) H 11/23/18 16:29 AST 79 U/L (15-37) H 11/24/18 06:40 ALT 81 U/L (12-78) H 11/24/18 06:40 Alkaline Phosphatase 105 U/L (46-116) 11/24/18 06:40 Total Protein 5.9 g/dL (6.4-8.2) L 11/24/18 06:40 Albumin 2.4 g/dL (3.4-5.0) L 11/24/18 06:40 Lipase 63 U/L (73-393) L 11/23/18 16:29 Urine Color Radha (Yellow) 11/23/18 17:33 Urine Clarity Clear 11/23/18 17:33 Urine pH 5.5 (5-8) 11/23/18 17:33 Ur Specific [place] 1.015 (1.005-1.025) 11/23/18 17:33 Urine Protein 30 mg/dL (Negative) H 11/23/18 17:33 Urine Ketones 40 mg/dL (Negative) H 11/23/18 17:33 Urine Blood Trace-intact (Negative) H 11/23/18 17:33 Urine Nitrite Negative (Negative) 11/23/18 17:33 Urine Bilirubin Small (Negative) H 11/23/18 17:33 Urine Urobilinogen 1.0 EU/dL (Up TO 0.2) H 11/23/18 17:33 Ur Leukocyte Esterase Negative (Negative) 11/23/18 17:33 Urine RBC 0-2 (0-2) 11/23/18 17:33 Urine WBC 5-10 HPF (0-5) 11/23/18 17:33 Ur Epithelial Cells Rare HPF (Negative) 11/23/18 17:33 Urine Crystals Negative HPF (Negative) 11/23/18 17:33 Urine Bacteria Negative HPF (Negative) 11/23/18 17:33 Urine Casts Negative LPF (Negative) 11/23/18 17:33 Urine Mucus Negative (Negative) 11/23/18 17:33 Ur Culture Indicated? Yes 11/23/18 17:33 Urine Glucose Negative mg/dL (Negative) 11/23/18 17:33 Patient ABO/Rh A Positive 11/23/18 18:20 Antibody Screen Negative 11/23/18 18:20
--- NOTE | 2018-11-24 10:00 | DI.US_ITS ---
SYMPTOM/DIAGNOSIS: CHOLECYSTITIS WITH NO STONES ON CT ABDOMEN ULTRASOUND: Comparison is made with CT of 23 November 2018. The gallbladder is abnormally distended and shows wall thickening. There is sludge and a question of a few tiny stones. There is a positive sonographic Wilde's sign. There is no biliary dilatation. There is a trace amount of pericholecystic fluid. The liver shows mild fatty infiltration. The kidneys appear normal. The spleen is obscured by bowel gas. IMPRESSION: Findings consistent with acute cholecystitis. There is some sludge and a question of a few tiny stones. No common duct stone or biliary dilatation is seen.
[2018-11-24] MEDS: Ketorolac 15 MG/ML VIAL IVP ×2 (11:40→20:03)
[2018-11-24] MEDS: ACETAMINOPHEN 1,000 MG/100 ML BTL 400 MG IVPB (14:06)
--- NOTE | 2018-11-24 15:25 | PDOC.CMIN ---
- If Service Date Differs Date of service: 11/24/18 Time of Service: 15:25 Care Management Initial Assess REASON FOR HOSPITALIZATION:: Acute cholecystitis PAST MEDICAL HISTORY/PAST SURGICAL HISTORY:: Medical History: Adenomatous colon polyp. BPH (benign prostatic hypertrophy). Lumbago. Surgical History: Extraction of cataract PREVIOUS FUNCTIONAL STATUS/SOCIAL/FAMILY SUPPORTS:: Dilan lives alone in a single family home in [place]. His son does stay with him from time to time. 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 He is very active and totally independent with all activities and care. He continues to drive and spends a lot of time on his boat which he [place]. He identifies his children as his community and family supports. CURRENT FUNCTIONAL STATUS:: Dilan was lying in bed talking to his daughter Ijeoma when CM came to visit. He had just returned from [facility] and was waiting to hear the results and the plan of care. He understands that he may need surgery. Rafael exhibits a good sense of humor, laughing and joking with staff. ADVANCE DIRECTIVES:: Dilan does not have advanced directives but was interested. CM provided copy of [facility] AD forms. Has patient been provided with information about the portal?: No Did the patient sign up for the portal?: No CODE STATUS:: Full Code INSURANCE COVERAGE / FINANCIAL ISSUES:: [facility] MCR replacement CURRENT HOME/COMMUNITY SERVICES/EQUIPMENT:: none currently PRIMARY CARE PHYSICIAN:: Flavio Wick MD POTENTIAL DISCHARGE NEEDS:: Follow up with surgeon, PCP and discharge plan of care. PATIENT/FAMILY EDUCATION NEEDS:: Discharge plan. limitations, follow up plan of care and Ask Me Three. ANTICIPATED BARRIERS TO DISCHARGE:: none TRANSPORTATION:: via private automobile with family when ready. PLAN:: Rafael was admitted with acyte cholecystitis. He is awaiting test results to determine whether or not he needs surgey. He will likely be discharged home with no services. CM to provide support to patient, family and discharge planning process.
--- NOTE | 2018-11-24 15:45 | PHARADMIT ---
Admission Pharmacy Clinical Review acute cholecystitis Code Status Full Code Current Weight 94.8 kg Renally Cleared and Narrow Therapeutic Index Meds Crcl ~65.0 mL/min current meds okay QTc Value / Action Taken QTc 418 BP Control, Fever BP 121/73 afebrile Electrolytes reviewed within normal limits DVT Prophylaxis none- may possibly need surgery? Opiate Usage / Scheduled Bowel Regimen Ordered prn/no Plt/SCr for Heparin / Enoxaparin plt 69 SCr 1.05 INR for Warfarin n/a H/H stable, WBC/Bands h/h 13.3/38.0 wbc 5.32 Antibiotic appropriateness zosyn Cultures and Sensitivities urine culture-no growth @ 24 hrs Surgical ABX d/c within 24 hr n/a DM control / Insulin Dosing BG 136 none Heart Failure (Check EF%) (PHONG's, B-Block, Diuretics) none IV to PO Switch n/a Home Meds Reviewed yes Home Meds Not Ordered augmentin, betamethasone, epinephrine, hydrocodone/acetaminophen, omeprazole, triamcinolone Comments
--- NOTE | 2018-11-24 21:39 | PGE_ITS ---
Date of Service Date of service: 11/24/18 Time of Service: 17:00 Assessment and Plan (1) Acute cholecystitis: Current visit: Yes Status: Acute I have reviewed the patient's history, labs and CT images. Findings are consistent with acute cholecystitis. LFTs are higher today but US does not show CBD stone. This may represent Mirizzi's. Will recheck platelets in am. Unit has been obtained from [facility]. We discussed proceeding with lap samantha/cholangiogram in the am. The procedure was discussed including the risks of infection, bleeding, hernia, injury to CBD/liver/bowel with need for further surgery. The risk of bile leak, possible conversion to an open procedure also discussed. Some patient have loose stool after removal of the gallbladder. He agrees to proceed. Exam Narrative Exam Narrative: MOderate RUQ tenderness to palpation Objective Objective Clinical Data: Abnormal lab results 11/24/18 11/24/18 Range/Units 06:40 06:40 RBC 4.10 L (4.50-6.00) m/cumm Hgb 13.3 L (13.5-17.5) g/dL Hct 38.0 L (40.0-50.0) % Plt Count 69 L (130-400) x1000/uL MPV 12.2 H (8.0-11.0) fL Absolute Lymphocytes 0.38 L (1.2-3.4) k/cumm Absolute Monocytes 1.01 H (0.11-0.7) k/cumm Anion Gap 15.7 H (3-11) mmol/L Glucose 136 H (70-100) mg/dL Calcium 7.6 L (8.5-10.1) mg/dL Total Bilirubin 4.0 H (0.2-1.0) mg/dL AST 79 H (15-37) U/L ALT 81 H (12-78) U/L Total Protein 5.9 L (6.4-8.2) g/dL Albumin 2.4 L (3.4-5.0) g/dL Vital Signs Temperature 97.0 F L 11/24/18 20:08 Temperature Source Temporal Artery Scan 11/24/18 20:08 Pulse 68 11/24/18 20:08 Pulse Rhythm Regular 11/24/18 20:48 Respiratory Rate 14 11/24/18 20:08 Respiratory Effort 11/24/18 20:48 Respiratory Depth Normal 11/24/18 20:48 Respiratory Pattern Normal 11/24/18 20:48 Blood Pressure 132/78 11/24/18 20:08 Blood Pressure Position Sitting 11/23/18 15:27 Pulse Oximetry 96 11/24/18 20:08 Oxygen Delivery Method Room Air 11/24/18 20:08 Oxygen Flow Rate 0 11/24/18 20:08 Pain Level 7 11/24/18 20:08 Intake & Output 11/23/18 11/24/18 11/24/18 23:59 11:59 23:59 Intake Total 1050 / 1050 1100 / 2300 1200 / 2300 Balance 1050 / 1050 1100 / 2300 1200 / 2300 Weight 212 lb 0.015 oz 208 lb 15.971 oz Intake: IV 1050 / 1050 1100 / 2300 1200 / 2300 Other: Urine Appearance Clear Clear Laboratory Results WBC 5.32 k/cumm (4.4-10.8) D 11/24/18 06:40 RBC 4.10 m/cumm (4.50-6.00) L 11/24/18 06:40 Hgb 13.3 g/dL (13.5-17.5) L 11/24/18 06:40 Hct 38.0 % (40.0-50.0) L 11/24/18 06:40 MCV 92.7 fL (80-95) 11/24/18 06:40 MCH 32.4 pg (27.0-33.0) 11/24/18 06:40 MCHC 35.0 g/dL (32.0-36.0) 11/24/18 06:40 RDW 11.8 % (11.8-14.1) 11/24/18 06:40 Plt Count 69 x1000/uL (130-400) L 11/24/18 06:40 MPV 12.2 fL (8.0-11.0) H 11/24/18 06:40 Immature Gran % 0.4 11/24/18 06:40 Neutrophils % 73.1 11/24/18 06:40 Lymphocytes % 7.1 11/24/18 06:40 Monocytes % 19.0 11/24/18 06:40 Eosinophils % 0.4 11/24/18 06:40 Basophils % 0.0 11/24/18 06:40 Absolute Neutrophils 3.89 k/cumm (1.2-6.7) 11/24/18 06:40 Absolute Lymphocytes 0.38 k/cumm (1.2-3.4) L 11/24/18 06:40 Absolute Monocytes 1.01 k/cumm (0.11-0.7) H 11/24/18 06:40 Absolute Eosinophils 0.02 k/cumm (0.0-0.7) 11/24/18 06:40 Absolute Basophils 0.00 k/cumm (0.0-0.2) 11/24/18 06:40 Differential Comment Plt morph reviewed 11/23/18 16:29 RBC Morphology Normal 11/23/18 16:29 Sodium 137 mmol/L (136-145) 11/24/18 06:40 Potassium 3.9 mmol/L (3.5-5.1) 11/24/18 06:40 Chloride 99 mmol/L (98-107) 11/24/18 06:40 Carbon Dioxide 22.3 mmol/L (21.0-32.0) 11/24/18 06:40 Anion Gap 15.7 mmol/L (3-11) H 11/24/18 06:40 BUN 16 mg/dL (7-18) 11/24/18 06:40 Creatinine 1.05 mg/dL (0.70-1.30) 11/24/18 06:40 Estimated GFR/1.73 m2 >= 60.00 (mL/min/1.73m2) 11/24/18 06:40 Glucose 136 mg/dL (70-100) H 11/24/18 06:40 Calcium 7.6 mg/dL (8.5-10.1) L 11/24/18 06:40 Total Bilirubin 4.0 mg/dL (0.2-1.0) H 11/24/18 06:40 Conjugated Bilirubin 0.55 mg/dL (0.00-0.20) H 11/23/18 16:29 AST 79 U/L (15-37) H 11/24/18 06:40 ALT 81 U/L (12-78) H 11/24/18 06:40 Alkaline Phosphatase 105 U/L (46-116) 11/24/18 06:40 Total Protein 5.9 g/dL (6.4-8.2) L 11/24/18 06:40 Albumin 2.4 g/dL (3.4-5.0) L 11/24/18 06:40 Lipase 63 U/L (73-393) L 11/23/18 16:29 Urine Color Radha (Yellow) 11/23/18 17:33 Urine Clarity Clear 11/23/18 17:33 Urine pH 5.5 (5-8) 11/23/18 17:33 Ur Specific [place] 1.015 (1.005-1.025) 11/23/18 17:33 Urine Protein 30 mg/dL (Negative) H 11/23/18 17:33 Urine Ketones 40 mg/dL (Negative) H 11/23/18 17:33 Urine Blood Trace-intact (Negative) H 11/23/18 17:33 Urine Nitrite Negative (Negative) 11/23/18 17:33 Urine Bilirubin Small (Negative) H 11/23/18 17:33 Urine Urobilinogen 1.0 EU/dL (Up TO 0.2) H 11/23/18 17:33 Ur Leukocyte Esterase Negative (Negative) 11/23/18 17:33 Urine RBC 0-2 (0-2) 11/23/18 17:33 Urine WBC 5-10 HPF (0-5) 11/23/18 17:33 Ur Epithelial Cells Rare HPF (Negative) 11/23/18 17:33 Urine Crystals Negative HPF (Negative) 11/23/18 17:33 Urine Bacteria Negative HPF (Negative) 11/23/18 17:33 Urine Casts Negative LPF (Negative) 11/23/18 17:33 Urine Mucus Negative (Negative) 11/23/18 17:33 Ur Culture Indicated? Yes 11/23/18 17:33 Urine Glucose Negative mg/dL (Negative) 11/23/18 17:33 Patient ABO/Rh A Positive 11/23/18 18:20 Antibody Screen Negative 11/23/18 18:20
[2018-11-25] VITALS (15 sets, daily range): BP systolic 90–135; BP diastolic 50–73; PULSE 46–66; RESP 18–20; TEMP 35.6–38; O2SAT 93–98
[2018-11-25] MEDS: PIPERACILLIN/TAZO 3.375 GM in Normal Saline 50 ML IVPB (05:52)
[2018-11-25] MEDS: Normal Saline Flush 10 ML SYR IVP ×3 (05:52→19:39)
[2018-11-25] MEDS: Ketorolac 15 MG/ML VIAL IVP (05:58)
[2018-11-25 07:14] LABS: Abs Immature Grans 0.02 k/cumm (0.0-0.09); Absolute Eosinophil Count 0.02 k/cumm (0.0-0.7); Absolute Monocyte Count 0.77 k/cumm (0.11-0.7); Absolute Neutrophil Count 3.02 k/cumm (1.2-6.7); Eosinophils % 0.5; HCT 36.4 % (40.0-50.0); HGB 12.8 g/dL (13.5-17.5); Immature Grans % 0.5; Lymphocytes % 11.5; Mean Corp. HGB Concentration 35.2 g/dL (32.0-36.0); Mean Corpuscular Hemoglobin 32.1 pg (27.0-33.0); Mean Corpuscular Volume 91.2 fL (80-95); Mean Platelet Volume 11.8 fL (8.0-11.0); Monocytes % 17.8; Neutrophils % 69.7; RBC 3.99 m/cumm (4.50-6.00); RBC Distribution Width 11.5 % (11.8-14.1); White Blood Cell Count 4.33 k/cumm (4.4-10.8)
[2018-11-25 07:49] LABS: ALT 99 U/L (12-78); AST 83 U/L (15-37); Albumin 2.3 g/dL (3.4-5.0); Alkaline Phosphatase 144 U/L (46-116); Anion Gap 9.7 mmol/L (3-11); BUN 15 mg/dL (7-18); CO2 24.3 mmol/L (21.0-32.0); CREATININE 1.02 mg/dL (0.70-1.30); Calcium 8.1 mg/dL (8.5-10.1); Chloride 104 mmol/L (98-107); Glucose 135 mg/dL (70-100); Potassium 3.7 mmol/L (3.5-5.1); Sodium 138 mmol/L (136-145); Total Protein 5.9 g/dL (6.4-8.2)
[2018-11-25 08:04] LABS: Platelet Count 90 x1000/uL (130-400)
[2018-11-25] MEDS: HYDROmorphone 2 MG/ML VIAL 1 MG IVP ×3 (08:06→19:38)
--- NOTE | 2018-11-25 08:39 | DI.RAD_ITS ---
SYMPTOMS/DIAGNOSIS: ACUTE CHOLECYSTITIS C-ARM FLUOROSCOPY: Fluoroscopy Time: 39.3sec Fluoroscopy was provided in the OR during operative cholangiogram. Single hardcopy image shows contrast injected into the biliary tree which appears normal in diameter. No filling defects are seen. Contrast is seen in the duodenum.
--- NOTE | 2018-11-25 08:46 | PGE_ITS ---
Date of Service Date of service: 11/25/18 Time of Service: 08:43 Assessment and Plan (1) Acute cholecystitis: Current visit: Yes Status: Acute To OR today for lap, possible open cholecystectomy. Risks per consent. Patient advised drain may be placed Platelets have improved, unit is available if needed. Subjective Interval history since last seen: Still very sore RUQ Had a few stools yesterday Exam Narrative Exam Narrative: Alert Lungs CTA Heart RRR Abdomen tender RUQ Objective Objective Clinical Data: Abnormal lab results 11/25/18 11/25/18 Range/Units 06:45 06:45 WBC 4.33 L (4.4-10.8) k/cumm RBC 3.99 L (4.50-6.00) m/cumm Hgb 12.8 L (13.5-17.5) g/dL Hct 36.4 L (40.0-50.0) % RDW 11.5 L (11.8-14.1) % Plt Count 90 L (130-400) x1000/uL MPV 11.8 H (8.0-11.0) fL Absolute Lymphocytes 0.50 L (1.2-3.4) k/cumm Absolute Monocytes 0.77 H (0.11-0.7) k/cumm Glucose 135 H (70-100) mg/dL Calcium 8.1 L (8.5-10.1) mg/dL Total Bilirubin 3.0 H (0.2-1.0) mg/dL AST 83 H (15-37) U/L ALT 99 H (12-78) U/L Alkaline Phosphatase 144 H (46-116) U/L Total Protein 5.9 L (6.4-8.2) g/dL Albumin 2.3 L (3.4-5.0) g/dL Vital Signs Temperature 98.1 F 11/25/18 07:25 Temperature Source Tympanic 11/25/18 07:25 Pulse 60 11/25/18 07:25 Pulse Rhythm Regular 11/24/18 20:48 Respiratory Rate 18 11/25/18 07:25 Respiratory Effort 11/24/18 20:48 Respiratory Depth Normal 11/24/18 20:48 Respiratory Pattern Normal 11/24/18 20:48 Blood Pressure 132/72 11/25/18 07:25 Blood Pressure Position Sitting 11/23/18 15:27 Pulse Oximetry 97 11/25/18 07:25 Oxygen Delivery Method Room Air 11/25/18 07:25 Oxygen Flow Rate 0 11/25/18 07:25 Pain Level 6 11/25/18 08:06 Intake & Output 11/24/18 11/24/18 11/25/18 11:59 23:59 11:59 Intake Total 1100 / 2300 1200 / 2300 50 / 50 Balance 1100 / 2300 1200 / 2300 50 / 50 Weight 208 lb 15.971 oz 212 lb 11.937 oz Intake: IV 1100 / 2300 1200 / 2300 50 / 50 Other: Urine Appearance Clear Laboratory Results WBC 4.33 k/cumm (4.4-10.8) L 11/25/18 06:45 RBC 3.99 m/cumm (4.50-6.00) L 11/25/18 06:45 Hgb 12.8 g/dL (13.5-17.5) L 11/25/18 06:45 Hct 36.4 % (40.0-50.0) L 11/25/18 06:45 MCV 91.2 fL (80-95) 11/25/18 06:45 MCH 32.1 pg (27.0-33.0) 11/25/18 06:45 MCHC 35.2 g/dL (32.0-36.0) 11/25/18 06:45 RDW 11.5 % (11.8-14.1) L 11/25/18 06:45 Plt Count 90 x1000/uL (130-400) L 11/25/18 06:45 MPV 11.8 fL (8.0-11.0) H 11/25/18 06:45 Immature Gran % 0.5 11/25/18 06:45 Neutrophils % 69.7 11/25/18 06:45 Lymphocytes % 11.5 11/25/18 06:45 Monocytes % 17.8 11/25/18 06:45 Eosinophils % 0.5 11/25/18 06:45 Basophils % 0.0 11/25/18 06:45 Absolute Neutrophils 3.02 k/cumm (1.2-6.7) 11/25/18 06:45 Absolute Lymphocytes 0.50 k/cumm (1.2-3.4) L 11/25/18 06:45 Absolute Monocytes 0.77 k/cumm (0.11-0.7) H 11/25/18 06:45 Absolute Eosinophils 0.02 k/cumm (0.0-0.7) 11/25/18 06:45 Absolute Basophils 0.00 k/cumm (0.0-0.2) 11/25/18 06:45 Differential Comment Plt morph reviewed 11/23/18 16:29 RBC Morphology Normal 11/23/18 16:29 Sodium 138 mmol/L (136-145) 11/25/18 06:45 Potassium 3.7 mmol/L (3.5-5.1) 11/25/18 06:45 Chloride 104 mmol/L (98-107) 11/25/18 06:45 Carbon Dioxide 24.3 mmol/L (21.0-32.0) 11/25/18 06:45 Anion Gap 9.7 mmol/L (3-11) 11/25/18 06:45 BUN 15 mg/dL (7-18) 11/25/18 06:45 Creatinine 1.02 mg/dL (0.70-1.30) 11/25/18 06:45 Estimated GFR/1.73 m2 >= 60.00 (mL/min/1.73m2) 11/25/18 06:45 Glucose 135 mg/dL (70-100) H 11/25/18 06:45 Calcium 8.1 mg/dL (8.5-10.1) L 11/25/18 06:45 Magnesium 2.0 mg/dL (1.8-2.4) 11/25/18 06:45 Total Bilirubin 3.0 mg/dL (0.2-1.0) H 11/25/18 06:45 Conjugated Bilirubin 0.55 mg/dL (0.00-0.20) H 11/23/18 16:29 AST 83 U/L (15-37) H 11/25/18 06:45 ALT 99 U/L (12-78) H 11/25/18 06:45 Alkaline Phosphatase 144 U/L (46-116) H 11/25/18 06:45 Total Protein 5.9 g/dL (6.4-8.2) L 11/25/18 06:45 Albumin 2.3 g/dL (3.4-5.0) L 11/25/18 06:45 Lipase 63 U/L (73-393) L 11/23/18 16:29 Urine Color Radha (Yellow) 11/23/18 17:33 Urine Clarity Clear 11/23/18 17:33 Urine pH 5.5 (5-8) 11/23/18 17:33 Ur Specific [place] 1.015 (1.005-1.025) 11/23/18 17:33 Urine Protein 30 mg/dL (Negative) H 11/23/18 17:33 Urine Ketones 40 mg/dL (Negative) H 11/23/18 17:33 Urine Blood Trace-intact (Negative) H 11/23/18 17:33 Urine Nitrite Negative (Negative) 11/23/18 17:33 Urine Bilirubin Small (Negative) H 11/23/18 17:33 Urine Urobilinogen 1.0 EU/dL (Up TO 0.2) H 11/23/18 17:33 Ur Leukocyte Esterase Negative (Negative) 11/23/18 17:33 Urine RBC 0-2 (0-2) 11/23/18 17:33 Urine WBC 5-10 HPF (0-5) 11/23/18 17:33 Ur Epithelial Cells Rare HPF (Negative) 11/23/18 17:33 Urine Crystals Negative HPF (Negative) 11/23/18 17:33 Urine Bacteria Negative HPF (Negative) 11/23/18 17:33 Urine Casts Negative LPF (Negative) 11/23/18 17:33 Urine Mucus Negative (Negative) 11/23/18 17:33 Ur Culture Indicated? Yes 11/23/18 17:33 Urine Glucose Negative mg/dL (Negative) 11/23/18 17:33 Patient ABO/Rh A Positive 11/23/18 18:20 Antibody Screen Negative 11/23/18 18:20
[2018-11-25] MEDS: Lactated Ringers 1,000 ML 30 ML IV (09:17)
[2018-11-25] MEDS: Omnipaque 300 MG/ML 50 ML BTL (10:41)
--- NOTE | 2018-11-25 11:04 | GB_PTH ---
PATIENT: Dilan William LOC: [id number] AGE/SX: 73/M ROOM: MS.230 RE11/23/[address]: Julisa Salamanca MD : 1945 BED: A DIS: 11/26/2018 SPEC #: [id number] RECD: 11/25/18 12:48 STATUS: JANELLE REQ #: [id number] REGINA: 11/25/18 11:[address]: Armida Mahmood DEPT: Surgical Specimen RECD BY: Thelma Jacobo ENTERED: 11/25/18 12:49 SP TYPE: GB OTHR DR: Flavio Wick DO Tissues: 1 - GALLBLADDER Procedures: GROSS AND MICRO LEVEL 3 Comments: [id number]
--- NOTE | 2018-11-25 12:30 | NUR.NOTE ---
Nursing Note: Pt A&Ox3. VSS, see worklist. Pt states he feels a bit dingy. Effects of anesthesia have not worn off yet. Pt groggy, arousal. HR reg. 4 trochar sites on abd, banaids noted. Pt denies pain.Will continue to monitor.
[2018-11-25] MEDS: Lactated Ringers 1,000 ML 125 ML IV (13:29)
--- NOTE | 2018-11-25 13:37 | ROE_ITS ---
DATE OF PROCEDURE: November 25, 2018 PREOPERATIVE DIAGNOSIS: Acute cholecystitis. POSTOPERATIVE DIAGNOSIS: Same. PROCEDURE: Laparoscopic cholecystectomy with cholangiogram. SURGEON: Armida Mahmood M.D. SENIOR MEDIA BUYER: Ros Zaragoza ANESTHESIA: Local and general. INDICATIONS: This is a 73-year-old man who presented with an approximately four day history of significant right upper quadrant pain. CT scan of the abdomen and pelvis showed definite inflammation surrounding the gallbladder with thickening of the gallbladder wall. Subsequent ultrasound showed tiny gallstones, as well as a normal common bile duct. He did have elevated liver function tests with a total bilirubin that peaked at 4. PROCEDURE: The patient was placed supine on the operating table and under general anesthetic had the hair on his abdomen clipped and then was prepped and draped sterilely. A 5 mm incision was made to the left of the umbilicus and the abdomen entered under direct visualization. A CO2 pneumoperitoneum was begun and he was placed in reverse Trendelenburg position. The epigastric and two lateral ports were placed under direct visualization after injecting local anesthetic. The gallbladder was not immediately visualized due to adhesion of the omentum to it. This was bluntly taken down to reveal a distended and inflamed gallbladder with a thickened wall. The gallbladder was decompressed of about 60 cc's of turbid bile. The gallbladder fundus was then retracted up over the liver and the infundibulum retracted laterally. Dissection was very slow due to the degree of inflammation. The cystic artery was identified and visualized going directly onto the gallbladder. This was clipped twice proximally, once distally and divided. The cystic duct was identified and initially appeared somewhat dilated, but there was a lot of inflammatory change around it and was not necessarily duct dilation. This was also visualized going directly onto the gallbladder. A clip was applied on the gallbladder side and a small opening made in the cystic duct. The Cholangiogram catheter was inserted and held in place with a grasper. The saline flowed well. The cholangiogram was performed and showed excellent visualization of the common bile duct, which was not dilated. There was free-flow into the duodenum. The right and left hepatic ducts were visualized. Two clips were applied to the distal cystic duct. The duct was then divided completely at the site of the previous opening made for the cholangiogram. The gallbladder was then carefully dissected off the liver bed with Hook cautery. I did place a few clips in the gallbladder fossa at the site of a possible small vascular branch. Once the gallbladder was removed, the operative site was inspected. There was excellent hemostasis. The clips were visualized with no evidence of bleeding or bile leak. The region was copiously irrigated and suction cleaned. The gallbladder was removed through the epigastric incision in an EndoCatch bag. The CO2 was released and the ports removed. The skin and all port sites were closed with a #4-0 Monocryl subcuticular stitch. He tolerated the procedure well and was stable to recovery.
[2018-11-25 13:57] LABS: Abs Immature Grans 0.06 k/cumm (0.0-0.09); Absolute Basophil Count 0.01 k/cumm (0.0-0.2); Absolute Monocyte Count 0.54 k/cumm (0.11-0.7); Absolute Neutrophil Count 3.41 k/cumm (1.2-6.7); Basophils % 0.2; HCT 39.6 % (40.0-50.0); HGB 13.7 g/dL (13.5-17.5); Immature Grans % 1.4; Lymphocytes % 6.9; Mean Corp. HGB Concentration 34.6 g/dL (32.0-36.0); Mean Corpuscular Hemoglobin 31.8 pg (27.0-33.0); Mean Corpuscular Volume 91.9 fL (80-95); Monocytes % 12.5; RBC 4.31 m/cumm (4.50-6.00); RBC Distribution Width 11.9 % (11.8-14.1); White Blood Cell Count 4.32 k/cumm (4.4-10.8)
[2018-11-25 14:17] LABS: Diff Comment PLT Morph Reviewed; Platelet Count 76 x1000/uL (130-400)
[2018-11-25 14:18] LABS: RBC Morphology Normal
--- NOTE | 2018-11-25 16:17 | PDOC.CMPRO ---
- If Service Date Differs Date of service: 11/25/18 Time of Service: 16:17 Care Management Progress Note S/O:Dilan was in the operating room when CM came to visit. His son and daughter were present and discussed the discharge plan. Due to the extent of inflammation, per MD, Dilan is likely to remain hospitalized overnight and be discharged in the morning. A: Dilan is a very pleasant 73 year old gentleman admitted to [facility] on 11/23/18 with acute Cholecystitis. P: Dilan had a Laparoscopic Cholecystectomy today. He will likely be discharged with no additional services. CM will continue to provide support to the patient, family and discharge planning process.
--- NOTE | 2018-11-25 16:25 | CMPROGNOTE_ITS ---
- If Service Date Differs Date of service: 11/25/18 Time of Service: 16:17 Care Management Progress Note S/O:Dilan was in the operating room when CM came to visit. His son and daughter were present and discussed the discharge plan. Due to the extent of inflammation, per MD, Dilan is likely to remain hospitalized overnight and be discharged in the morning. A: Dilan is a very pleasant 73 year old gentleman admitted to [facility] on 11/23/18 with acute Cholecystitis. P: Dilan had a Laparoscopic Cholecystectomy today. He will likely be discharged with no additional services. CM will continue to provide support to the patient, family and discharge planning process.
--- NOTE | 2018-11-25 17:00 | W.PM.PROGNOT ---
Date of Service Date of service: 11/25/18 Time of Service: 17:00 Assessment and Plan (1) S/P laparoscopic cholecystectomy: Current visit: Yes Status: Acute A\\ POD #0 s/p Lap. Sushila Doing well post-op P\\ SL IV Advance diet as tolerated Up and walking Shower D/C to home most likely tomorrow (2) Thrombocytopenia: Current visit: Yes Status: Chronic A\\ Decrease in PLT's after surgery Recheck tomorrow P\\ If platelets better tomorrow then will re-check prior to following up with Dr. Escobar in the office. Subjective Interval history since last seen: Feeling OK. Pain is less then this am. Still sleepy. commented on his breathing being labored when they took him off the O2. Discussed the ISP with him and importance of getting up and walking. Patient requesting a shower. Exam GI Inspection: incision (c/d/i) Palpation: soft and tender Objective Objective Clinical Data: Abnormal lab results 11/25/18 11/25/18 11/25/18 Range/Units 06:45 06:45 13:33 WBC 4.33 L 4.32 L (4.4-10.8) k/cumm RBC 3.99 L 4.31 L (4.50-6.00) m/cumm Hgb 12.8 L (13.5-17.5) g/dL Hct 36.4 L 39.6 L (40.0-50.0) % RDW 11.5 L (11.8-14.1) % Plt Count 90 L 76 L (130-400) x1000/uL MPV 11.8 H 12.0 H (8.0-11.0) fL Absolute Lymphocytes 0.50 L 0.30 L (1.2-3.4) k/cumm Absolute Monocytes 0.77 H (0.11-0.7) k/cumm Glucose 135 H (70-100) mg/dL Calcium 8.1 L (8.5-10.1) mg/dL Total Bilirubin 3.0 H (0.2-1.0) mg/dL AST 83 H (15-37) U/L ALT 99 H (12-78) U/L Alkaline Phosphatase 144 H (46-116) U/L Total Protein 5.9 L (6.4-8.2) g/dL Albumin 2.3 L (3.4-5.0) g/dL Vital Signs Temperature 99.7 F H 11/25/18 16:09 Temperature Source Tympanic 11/25/18 16:09 Pulse 66 11/25/18 16:09 Pulse Rhythm Regular 11/25/18 16:24 Respiratory Rate 19 11/25/18 16:09 Respiratory Effort Non-Labored 11/25/18 16:24 Respiratory Depth Normal 11/25/18 16:24 Respiratory Pattern Normal 11/25/18 16:24 Blood Pressure 135/73 11/25/18 16:09 Blood Pressure Position Sitting 11/23/18 15:27 Pulse Oximetry 94 L 11/25/18 16:09 Respiratory End-tidal CO2 11/25/18 11:52 Oxygen Delivery Method Room Air 11/25/18 16:09 Oxygen Flow Rate 0 11/25/18 16:09 Pain Level 4 11/25/18 16:09 Comment 11/25/18 12:31 Intake & Output 11/24/18 11/25/18 11/25/18 23:59 11:59 23:59 Intake Total 1200 / 2300 1270.833 / 1630.833 360 / 1630.833 Balance 1200 / 2300 1270.833 / 1630.833 360 / 1630.833 Weight 212 lb 11.937 oz Intake: IV 1200 / 2300 1270.833 / 1270.833 Oral 360 / 360 Other: Urine Appearance Clear Comment urine not assessed at this time. pt is voiding independently in bathroom, pt denies issues at this time but does report nocturia to RN this am Emesis Description None None Voiding Methods Toilet Laboratory Results WBC 4.32 k/cumm (4.4-10.8) L 11/25/18 13:33 RBC 4.31 m/cumm (4.50-6.00) L 11/25/18 13:33 Hgb 13.7 g/dL (13.5-17.5) 11/25/18 13:33 Hct 39.6 % (40.0-50.0) L 11/25/18 13:33 MCV 91.9 fL (80-95) 11/25/18 13:33 MCH 31.8 pg (27.0-33.0) 11/25/18 13:33 MCHC 34.6 g/dL (32.0-36.0) 11/25/18 13:33 RDW 11.9 % (11.8-14.1) 11/25/18 13:33 Plt Count 76 x1000/uL (130-400) L 11/25/18 13:33 MPV 12.0 fL (8.0-11.0) H 11/25/18 13:33 Immature Gran % 1.4 11/25/18 13:33 Neutrophils % 79.0 11/25/18 13:33 Lymphocytes % 6.9 11/25/18 13:33 Monocytes % 12.5 11/25/18 13:33 Eosinophils % 0.0 11/25/18 13:33 Basophils % 0.2 11/25/18 13:33 Absolute Neutrophils 3.41 k/cumm (1.2-6.7) 11/25/18 13:33 Absolute Lymphocytes 0.30 k/cumm (1.2-3.4) L 11/25/18 13:33 Absolute Monocytes 0.54 k/cumm (0.11-0.7) 11/25/18 13:33 Absolute Eosinophils 0.00 k/cumm (0.0-0.7) 11/25/18 13:33 Absolute Basophils 0.01 k/cumm (0.0-0.2) 11/25/18 13:33 Differential Comment Plt morph reviewed 11/25/18 13:33 RBC Morphology Normal 11/25/18 13:33 Sodium 138 mmol/L (136-145) 11/25/18 06:45 Potassium 3.7 mmol/L (3.5-5.1) 11/25/18 06:45 Chloride 104 mmol/L (98-107) 11/25/18 06:45 Carbon Dioxide 24.3 mmol/L (21.0-32.0) 11/25/18 06:45 Anion Gap 9.7 mmol/L (3-11) 11/25/18 06:45 BUN 15 mg/dL (7-18) 11/25/18 06:45 Creatinine 1.02 mg/dL (0.70-1.30) 11/25/18 06:45 Estimated GFR/1.73 m2 >= 60.00 (mL/min/1.73m2) 11/25/18 06:45 Glucose 135 mg/dL (70-100) H 11/25/18 06:45 Calcium 8.1 mg/dL (8.5-10.1) L 11/25/18 06:45 Magnesium 2.0 mg/dL (1.8-2.4) 11/25/18 06:45 Total Bilirubin 3.0 mg/dL (0.2-1.0) H 11/25/18 06:45 Conjugated Bilirubin 0.55 mg/dL (0.00-0.20) H 11/23/18 16:29 AST 83 U/L (15-37) H 11/25/18 06:45 ALT 99 U/L (12-78) H 11/25/18 06:45 Alkaline Phosphatase 144 U/L (46-116) H 11/25/18 06:45 Total Protein 5.9 g/dL (6.4-8.2) L 11/25/18 06:45 Albumin 2.3 g/dL (3.4-5.0) L 11/25/18 06:45 Lipase 63 U/L (73-393) L 11/23/18 16:29 Urine Color Radha (Yellow) 11/23/18 17:33 Urine Clarity Clear 11/23/18 17:33 Urine pH 5.5 (5-8) 11/23/18 17:33 Ur Specific [place] 1.015 (1.005-1.025) 11/23/18 17:33 Urine Protein 30 mg/dL (Negative) H 11/23/18 17:33 Urine Ketones 40 mg/dL (Negative) H 11/23/18 17:33 Urine Blood Trace-intact (Negative) H 11/23/18 17:33 Urine Nitrite Negative (Negative) 11/23/18 17:33 Urine Bilirubin Small (Negative) H 11/23/18 17:33 Urine Urobilinogen 1.0 EU/dL (Up TO 0.2) H 11/23/18 17:33 Ur Leukocyte Esterase Negative (Negative) 11/23/18 17:33 Urine RBC 0-2 (0-2) 11/23/18 17:33 Urine WBC 5-10 HPF (0-5) 11/23/18 17:33 Ur Epithelial Cells Rare HPF (Negative) 11/23/18 17:33 Urine Crystals Negative HPF (Negative) 11/23/18 17:33 Urine Bacteria Negative HPF (Negative) 11/23/18 17:33 Urine Casts Negative LPF (Negative) 11/23/18 17:33 Urine Mucus Negative (Negative) 11/23/18 17:33 Ur Culture Indicated? Yes 11/23/18 17:33 Urine Glucose Negative mg/dL (Negative) 11/23/18 17:33 Patient ABO/Rh A Positive 11/23/18 18:20 Antibody Screen Negative 11/23/18 18:20
[2018-11-25] MEDS: Acetaminophen 325 MG TAB 650 MG PO (19:30)
[2018-11-26] VITALS: BP 110/64; PULSE 61; RESP 18; TEMP 36.9; O2SAT 94
[2018-11-26] MEDS: Normal Saline Flush 10 ML SYR IVP (00:18)
[2018-11-26] MEDS: HYDROmorphone 2 MG/ML VIAL 1 MG IVP (00:21)
[2018-11-26 04:58] VITALS: BP 93/56; PULSE 55; RESP 17; TEMP 36.2; O2SAT 95
--- NOTE | 2018-11-26 07:03 | PGE_ITS ---
Date of Service Date of service: 11/26/18 Time of Service: 07:00 Assessment and Plan (1) S/P laparoscopic cholecystectomy: Current visit: Yes Status: Acute POD #1 s/p lap. Sushila. Tolerating advances in his diet. Pain has improved (+) Flatus, No BM Ambulating independently. AM labs- PENDING Disposition- D/C home, if tolerating breakfast and no concerns with AM labs. (2) Thrombocytopenia: Current visit: Yes Status: Chronic Subjective Interval history since last seen: Reports continued soreness of the RUQ, which is less than before. Tolerating advances in his diet. (+) Flatus, No BM. Denies any N/V, fevers or chills. Exam Const General: cooperative, healthy appearing and comfortable Resp Effort & Inspection: normal respiratory effort, no audible wheezes and no cough GI Inspection: normal to inspection Palpation: soft, no guarding and tender in the RUQ Objective Objective Clinical Data: Abnormal lab results 11/25/18 11/25/18 11/25/18 Range/Units 06:45 06:45 13:33 WBC 4.33 L 4.32 L (4.4-10.8) k/cumm RBC 3.99 L 4.31 L (4.50-6.00) m/cumm Hgb 12.8 L (13.5-17.5) g/dL Hct 36.4 L 39.6 L (40.0-50.0) % RDW 11.5 L (11.8-14.1) % Plt Count 90 L 76 L (130-400) x1000/uL MPV 11.8 H 12.0 H (8.0-11.0) fL Absolute Lymphocytes 0.50 L 0.30 L (1.2-3.4) k/cumm Absolute Monocytes 0.77 H (0.11-0.7) k/cumm Glucose 135 H (70-100) mg/dL Calcium 8.1 L (8.5-10.1) mg/dL Total Bilirubin 3.0 H (0.2-1.0) mg/dL AST 83 H (15-37) U/L ALT 99 H (12-78) U/L Alkaline Phosphatase 144 H (46-116) U/L Total Protein 5.9 L (6.4-8.2) g/dL Albumin 2.3 L (3.4-5.0) g/dL Vital Signs Temperature 36.2 C L 11/26/18 04:58 Temperature Source Tympanic 11/26/18 04:58 Pulse 55 L 11/26/18 04:58 Pulse Rhythm Regular 11/26/18 00:00 Respiratory Rate 17 11/26/18 04:58 Respiratory Effort 11/26/18 00:00 Respiratory Depth Normal 11/26/18 00:00 Respiratory Pattern Normal 11/26/18 00:00 Blood Pressure 93/56 L 11/26/18 04:58 Blood Pressure Position Sitting 11/23/18 15:27 Pulse Oximetry 95 11/26/18 04:58 Respiratory End-tidal CO2 25 11/25/18 11:52 Oxygen Delivery Method Room Air 11/26/18 04:58 Oxygen Flow Rate 0 11/26/18 04:58 Pain Level 1 11/26/18 01:21 Comment 11/25/18 19:33 Intake & Output 11/25/18 11/25/18 11/26/18 06:59 18:59 06:59 Intake Total 50 / 1250 2009.333 / 2310.333 300 / 2310.333 Balance 50 / 1250 2009.333 / 2310.333 300 / 2310.333 Weight 96.5 kg Intake: IV 50 / 1250 1410.333 / 1410.333 Oral 600 / 900 300 / 900 Other: Urine Appearance Clear Comment urine not assessed at this time. pt is voiding independently in bathroom, pt denies issues at this time but does report nocturia to RN this am VOIDED LARGE AMT IN TOILET AND FLUSHED. Emesis Description None Voiding Methods Toilet Toilet Laboratory Results WBC 4.32 k/cumm (4.4-10.8) L 11/25/18 13:33 RBC 4.31 m/cumm (4.50-6.00) L 11/25/18 13:33 Hgb 13.7 g/dL (13.5-17.5) 11/25/18 13:33 Hct 39.6 % (40.0-50.0) L 11/25/18 13:33 MCV 91.9 fL (80-95) 11/25/18 13:33 MCH 31.8 pg (27.0-33.0) 11/25/18 13:33 MCHC 34.6 g/dL (32.0-36.0) 11/25/18 13:33 RDW 11.9 % (11.8-14.1) 11/25/18 13:33 Plt Count 76 x1000/uL (130-400) L 11/25/18 13:33 MPV 12.0 fL (8.0-11.0) H 11/25/18 13:33 Immature Gran % 1.4 11/25/18 13:33 Neutrophils % 79.0 11/25/18 13:33 Lymphocytes % 6.9 11/25/18 13:33 Monocytes % 12.5 11/25/18 13:33 Eosinophils % 0.0 11/25/18 13:33 Basophils % 0.2 11/25/18 13:33 Absolute Neutrophils 3.41 k/cumm (1.2-6.7) 11/25/18 13:33 Absolute Lymphocytes 0.30 k/cumm (1.2-3.4) L 11/25/18 13:33 Absolute Monocytes 0.54 k/cumm (0.11-0.7) 11/25/18 13:33 Absolute Eosinophils 0.00 k/cumm (0.0-0.7) 11/25/18 13:33 Absolute Basophils 0.01 k/cumm (0.0-0.2) 11/25/18 13:33 Differential Comment Plt morph reviewed 11/25/18 13:33 RBC Morphology Normal 11/25/18 13:33 Sodium 138 mmol/L (136-145) 11/25/18 06:45 Potassium 3.7 mmol/L (3.5-5.1) 11/25/18 06:45 Chloride 104 mmol/L (98-107) 11/25/18 06:45 Carbon Dioxide 24.3 mmol/L (21.0-32.0) 11/25/18 06:45 Anion Gap 9.7 mmol/L (3-11) 11/25/18 06:45 BUN 15 mg/dL (7-18) 11/25/18 06:45 Creatinine 1.02 mg/dL (0.70-1.30) 11/25/18 06:45 Estimated GFR/1.73 m2 >= 60.00 (mL/min/1.73m2) 11/25/18 06:45 Glucose 135 mg/dL (70-100) H 11/25/18 06:45 Calcium 8.1 mg/dL (8.5-10.1) L 11/25/18 06:45 Magnesium 2.0 mg/dL (1.8-2.4) 11/25/18 06:45 Total Bilirubin 3.0 mg/dL (0.2-1.0) H 11/25/18 06:45 Conjugated Bilirubin 0.55 mg/dL (0.00-0.20) H 11/23/18 16:29 AST 83 U/L (15-37) H 11/25/18 06:45 ALT 99 U/L (12-78) H 11/25/18 06:45 Alkaline Phosphatase 144 U/L (46-116) H 11/25/18 06:45 Total Protein 5.9 g/dL (6.4-8.2) L 11/25/18 06:45 Albumin 2.3 g/dL (3.4-5.0) L 11/25/18 06:45 Lipase 63 U/L (73-393) L 11/23/18 16:29 Urine Color Radha (Yellow) 11/23/18 17:33 Urine Clarity Clear 11/23/18 17:33 Urine pH 5.5 (5-8) 11/23/18 17:33 Ur Specific [place] 1.015 (1.005-1.025) 11/23/18 17:33 Urine Protein 30 mg/dL (Negative) H 11/23/18 17:33 Urine Ketones 40 mg/dL (Negative) H 11/23/18 17:33 Urine Blood Trace-intact (Negative) H 11/23/18 17:33 Urine Nitrite Negative (Negative) 11/23/18 17:33 Urine Bilirubin Small (Negative) H 11/23/18 17:33 Urine Urobilinogen 1.0 EU/dL (Up TO 0.2) H 11/23/18 17:33 Ur Leukocyte Esterase Negative (Negative) 11/23/18 17:33 Urine RBC 0-2 (0-2) 11/23/18 17:33 Urine WBC 5-10 HPF (0-5) 11/23/18 17:33 Ur Epithelial Cells Rare HPF (Negative) 11/23/18 17:33 Urine Crystals Negative HPF (Negative) 11/23/18 17:33 Urine Bacteria Negative HPF (Negative) 11/23/18 17:33 Urine Casts Negative LPF (Negative) 11/23/18 17:33 Urine Mucus Negative (Negative) 11/23/18 17:33 Ur Culture Indicated? Yes 11/23/18 17:33 Urine Glucose Negative mg/dL (Negative) 11/23/18 17:33 Patient ABO/Rh A Positive 11/23/18 18:20 Antibody Screen Negative 11/23/18 18:20
[2018-11-26 07:38] LABS: Abs Immature Grans 0.04 k/cumm (0.0-0.09); Absolute Lymphocyte Count 0.59 k/cumm (1.2-3.4); Absolute Monocyte Count 0.66 k/cumm (0.11-0.7); Absolute Neutrophil Count 3.66 k/cumm (1.2-6.7); HCT 36.4 % (40.0-50.0); HGB 12.5 g/dL (13.5-17.5); Immature Grans % 0.8; Lymphocytes % 11.9; Mean Corp. HGB Concentration 34.3 g/dL (32.0-36.0); Mean Corpuscular Hemoglobin 31.7 pg (27.0-33.0); Mean Corpuscular Volume 92.4 fL (80-95); Mean Platelet Volume 12.6 fL (8.0-11.0); Monocytes % 13.3; RBC 3.94 m/cumm (4.50-6.00); RBC Distribution Width 11.8 % (11.8-14.1); White Blood Cell Count 4.95 k/cumm (4.4-10.8)
[2018-11-26 07:50] LABS: Diff Comment PLT Morph Reviewed; Platelet Count 82 x1000/uL (130-400); RBC Morphology Normal
[2018-11-26 07:53] LABS: ALT 105 U/L (12-78); AST 71 U/L (15-37); Albumin 2.3 g/dL (3.4-5.0); Alkaline Phosphatase 143 U/L (46-116); Anion Gap 6.9 mmol/L (3-11); BUN 16 mg/dL (7-18); Bilirubin, Total 1.6 mg/dL (0.2-1.0); CO2 27.1 mmol/L (21.0-32.0); Calcium 8.3 mg/dL (8.5-10.1); Chloride 103 mmol/L (98-107); Glucose 191 mg/dL (70-100); Potassium 4.4 mmol/L (3.5-5.1); Sodium 137 mmol/L (136-145); Total Protein 6.3 g/dL (6.4-8.2)
[2018-11-26 08:00] VITALS: BP 121/72; PULSE 54; RESP 18; TEMP 36.6; O2SAT 96; O2SAT 99
[2018-11-26] MEDS: HYDROcodone 5/Acetaminophen 325 TAB PO (09:04)
--- NOTE | 2018-11-26 10:14 | W.PM.DS.N ---
Date of service: 11/26/18 Time of Service: 10:14 DS: Diagnosis Discharge Diagnosis (1) S/P laparoscopic cholecystectomy: Status: Acute (2) Thrombocytopenia: Status: Chronic (3) Acute cholecystitis: Status: Acute Discharge Plan Disposition Patient Disposition: HOME Condition: Improving Discharge Details Chief Complaint: Abd Prob Reason For Visit: ACUTE CHOLECYSTITIS Admit Date/Time: 11/23/18 18:13 Admit Provider: Marshall Machado Attending Provider: Marshall Machado Primary Care Provider: Flavio Wick ED Provider: Moi Dobson Hospital Course Hospital Course: Mr. William is a pleasant 73 year old male who came to the ER on 11/23/18 with 2 day history of RUQ abdominal pain. CT scan showed pericholystitic fluid and wall thickening. No stones were noted. Bilirubin was slightly elevated. Labs showed a normal WBC count but his PLTs were low at 80,000. He was admitted for bowel rest and antibiotics by the [facility] Surgeon. On Friday 11/24 his Bilirubin was high above 3 and his LFT's were slightly elevated, and his PLTs were lower. PLT's were ordered for possible transfusion. US was ordered and showed sludge but no bile duct dilatation. he was taken to surgery on saturday morning once we had PLT's in house. His PLTs the morning of surgery were up to 90,000 so he was not transfused. Surgery went well. An IOC was done and showed no stones. POD#1 his WBC count was normal and PLT count was stable, he was eating a regular diet and his pain was much improved. he was passing flatus and had no N/V and no fevers. Patient is discharged home. He will Follow up with Dr. Escobar in 2 weeks. We will repeat his CBC prior to that appointment to make sure his PLTs are stable and hopefully improving. I did discuss with him that his CT scan and US both showed fatty infiltration in his liver and this is most comenly due to alcohol abuse. I encouraged him to cut down on his alcohol intake to no more then 1 drink per day. Home Meds and New Rx's Prescriptions: New acetaminophen [Tylenol] 325 mg Tablet 650 mg PO Q6H PRN PRNQty: 30 RF: 0 hydrocodone-acetaminophen 5-325 mg Tablet 1 - 2 tab PO Q4H PRN PRNQty: 14 RF: 0 ibuprofen 600 mg tablet 600 mg PO QID PRN (Reason: fever or pain) Qty: 30 RF: 0 Continued epinephrine 0.3 MG/0.3 ML auto-injector 0.3 mg IM PRN Qty: 3 RF: 4 betamethasone, augmented [Diprolene] 60 ML lotion 60 ml Topical DAILY Qty: 1 RF: 2 triamcinolone acetonide 60 ML lotion 60 ml Topical DAILY Qty: 1 RF: 6 omeprazole 20 mg capsule,delayed release(DR/EC) 20 mg PO DAILY Qty: 90 RF: 4 Discontinued hydrocodone-acetaminophen 5-325 mg Tablet 2 tab PO Q6H RF: 0 amoxicillin-pot clavulanate 875-125 mg Tablet 1 tab PO Q12H RF: 0 Discharge Instructions Instructions: Cholecystitis (DC), Laparoscopic Cholecystectomy (DC) Additional Instructions: Activity at Home after surgery: 1. Make sure you walk outside at least 4 times per day 2. You should be able to climb a flight of stairs 3. No driving while in pain or taking pain medications 4. No strenuous activity or heavy lifting for 2 weeks (laparoscopic surgery) Diet, Nutrition, & wound healin. Avoid alcohol until after you are recovered from your surgery 2. Make sure to eat plenty of lean protein (meat, fish, eggs, cottage cheese, beans) 3. Eat a variety of fruits and vegetables. Eat plenty of high fiber foods to avoid constipation. 4. Drink plenty of liquids to stay hydrated and avoid constipation Pain Medications: 1. Tylenol 650 mg every 6 hours as needed and Ibuprofen 600 mg every 6 hours as needed. Take with food 2. If a narcotic has been prescribed take as directed only for breakthrough pain For Constipation: 1. MiraLax daily for constipation Other: 1. You may shower daily. Do not scrub the incisions 2. Do not soak the incisions for 1 week 3. You may alternate ice and heat as needed for pain and swelling Wound Care: 1. Keep the incisions clean and dry Other: Please have lab drawn either the day before your appointment with Dr. Mahmood or the morning off your appointment Please call our office if you develop: 1. Fevers >101.5 2. Nausea or Vomiting 3. Worsening pain 4. Redness and thick discharge from the wounds If after hours please call the Hospital at and ask to speak to the on-call surgeon Referrals: Armida Mahmood MD [ [facility] STAFF PHYSICIAN] - (2 weeks) Activity:: Activity as Tolerated Equipment/Supplies:: No Equipment Needed Diet:: low fat Discharge Orders Discharge Orders: Discharge Order (Routine); Ordered 11/26/18 Ordered By: Julisa Salamanca Other Ambulatory Orders: Complete Blood Count No Diff (Routine) Timeframe: 10 Day Facility: [facility] - Location: Laboratory Outpatient Ordered By: Julisa Salamanca Exam Const General: cooperative, comfortable and no acute distress Orientation: alert and oriented x3 Resp Effort & Inspection: normal respiratory effort Auscultation: clear to auscultation bilaterally Cardio Rate: regular rate Rhythm: regular rhythm Heart Sounds: no gallops, no murmurs and no rubs GI Inspection: incision (c/d/i) Palpation: soft, no hepatosplenomegaly, no guarding and tender (mild RUQ) Auscultation: normal bowel sounds DS: Data Vitals/I&O Vitals and I&O: Vital Signs Temperature 97.9 F 11/26/18 08:00 Temperature Source Tympanic 11/26/18 08:00 Pulse 54 L 11/26/18 08:00 Pulse Rhythm Regular 11/26/18 00:00 Respiratory Rate 18 11/26/18 08:00 Respiratory Effort 11/26/18 00:00 Respiratory Depth Normal 11/26/18 00:00 Respiratory Pattern Normal 11/26/18 00:00 Blood Pressure 121/72 11/26/18 08:00 Blood Pressure Position Sitting 11/23/18 15:27 Pulse Oximetry 99 11/26/18 08:00 Respiratory End-tidal CO2 25 11/25/18 11:52 Oxygen Delivery Method Room Air 11/26/18 08:00 Oxygen Flow Rate 0 11/26/18 08:00 Pain Level 3 11/26/18 09:04 Comment 11/25/18 19:33 Intake & Output 11/25/18 11/25/18 11/26/18 11:59 23:59 11:59 Intake Total 1270.833 / 2059.333 789.5 / 2060.333 300 / 300 Balance 1270.833 / 2060.333 789.5 / 2060.333 300 / 300 Weight 212 lb 11.937 oz Intake: IV 1270.833 / 1460.333 189.5 / 1460.333 Oral 600 / 600 300 / 300 Other: Comment urine not assessed at this time. pt is voiding independently in bathroom, pt denies issues at this time but does report nocturia to RN this am VOIDED LARGE AMT IN TOILET AND FLUSHED. Emesis Description None None Voiding Methods Toilet Toilet Labs on day of discharge: Labs from last 24 hours 11/26/18 11/26/18 11/25/18 07:00 07:00 13:33 WBC 4.95 4.32 L RBC 3.94 L 4.31 L Hgb 12.5 L 13.7 Hct 36.4 L 39.6 L MCV 92.4 91.9 MCH 31.7 31.8 MCHC 34.3 34.6 RDW 11.8 11.9 Plt Count 82 L 76 L MPV 12.6 H 12.0 H Immature Gran % 0.8 1.4 Neutrophils % 74.0 79.0 Lymphocytes % 11.9 6.9 Monocytes % 13.3 12.5 Eosinophils % 0.0 0.0 Basophils % 0.0 0.2 Absolute Neutrophils 3.66 3.41 Absolute Lymphocytes 0.59 L 0.30 L Absolute Monocytes 0.66 0.54 Absolute Eosinophils 0.00 0.00 Absolute Basophils 0.00 0.01 Differential Comment Plt morph reviewed Plt morph reviewed RBC Morphology Normal Normal Sodium 137 Potassium 4.4 Chloride 103 Carbon Dioxide 27.1 Anion Gap 6.9 BUN 16 Creatinine 1.00 Estimated GFR/1.73 m2 >= 60.00 Glucose 191 H Calcium 8.3 L Total Bilirubin 1.6 H AST 71 H ALT 105 H Alkaline Phosphatase 143 H Total Protein 6.3 L Albumin 2.3 L PFSH Medical History Adenomatous colon polyp BPH (benign prostatic hypertrophy) Lumbago Surgical History S/P laparoscopic cholecystectomy (Acute ~11/25/18) Extraction of cataract Family History Mother Diabetes Heart disease Hyperlipidemia Stroke Father No problems noted. Sister No problems noted. 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
--- NOTE | 2018-11-26 16:38 | PDOC.CMDIS ---
- If Service Date Differs Date of service: 11/26/18 Time of Service: 16:38 LACE Index Scoring Tool - Questions: Length of Stay (in days): 3 Acuity (Admit via E.D.?): Yes E.D. Visits: 1 - Answers: Total Score: 7 Risk of Readmission: Low Risk Care Management Discharge Reason for Hospitalization: Acute cholecystitis Discharge Plan: Dilan will be discharged home with no services. He will follow up with his PCP, surgeon and discharge plan of care.He will be transported via private vehicle with family. Patient/Family Education Needs: Discharge plan, limitations, follow up care, Ask Me Three.
== END 2018-11-26 11:16 | disposition home or self-care (01) | DRG 419 ==
LOC: ER 18:57 → MS 11-24 11:59
PROVIDERS: Nurse Practitioner Family; Surgery; Admitting Provider Surgery; Emergency Provider Student in an Organized Health Care Education/Training Program; PCP Emergency Medicine; Visit Provider Surgery
PROC: 0FT44ZZ Resection of Gallbladder, Percutaneous Endoscopic Approach (ICD-10-PCS; CPT 47563; 2018-11-25 08:30)
DX: K81.2 Acute cholecystitis with chronic cholecystitis (principal); D69.6 Thrombocytopenia, unspecified; F10.10 Alcohol abuse, uncomplicated; N40.0 Benign prostatic hyperplasia without lower urinary tract symptoms
CPT/HCPCS: 47563; 36415; 80053; 83690; 86850; 86900; 86901; 96361; 96365; 96375; 99222; 99232; 99285; NC; 74177; 74300; 76700; 81003; 81015; 82248; 83735; 85025; 87086; 88304; 99284; J0131; J1100; J1885; J2405; J2543; J3475; J3490; Q9967

== ENCOUNTER 2018-12-01 11:25 | Outpatient (CLI) | payer OTHER, SELFPAY ==
[2018-12-01 12:09] LABS: Bilirubin Negative (Negative); Blood Negative (Negative); Clarity Clear (Clear); Glucose Negative (Negative); Ketones Negative (Negative); Leukocyte Esterase Negative (Negative); Nitrite Negative (Negative); Specific Gravity 1.015 (1.005-1.025); Urobilinogen 0.2 EU/dL (Up TO 0.2); pH 6.5 (5-8)
[2018-12-01 12:15] LABS: HGB 13.9 g/dL (13.5-17.5); Mean Corp. HGB Concentration 33.9 g/dL (32.0-36.0); Mean Corpuscular Hemoglobin 31.6 pg (27.0-33.0); Mean Corpuscular Volume 93.2 fL (80-95); Mean Platelet Volume 11.5 fL (8.0-11.0); Platelet Count 221 x1000/uL (130-400); RBC Distribution Width 12.3 % (11.8-14.1); White Blood Cell Count 7.87 k/cumm (4.4-10.8)
== END 2018-12-01 11:45 ==
PROVIDERS: Surgery; PCP Emergency Medicine; Visit Provider Surgery
DX: R30.0 Dysuria (principal); D69.6 Thrombocytopenia, unspecified
CPT/HCPCS: 36415; 85027; 81003

== ENCOUNTER 2018-12-10 01:22 | Outpatient (CLI) | payer OTHER, SELFPAY ==
[2018-12-10 08:35] LABS: HCT 43.3 % (40.0-50.0); HGB 14.8 g/dL (13.5-17.5); Mean Corp. HGB Concentration 34.2 g/dL (32.0-36.0); Mean Corpuscular Hemoglobin 31.6 pg (27.0-33.0); Mean Corpuscular Volume 92.5 fL (80-95); Mean Platelet Volume 11.7 fL (8.0-11.0); Platelet Count 187 x1000/uL (130-400); RBC 4.68 m/cumm (4.50-6.00); RBC Distribution Width 12.2 % (11.8-14.1); White Blood Cell Count 4.35 k/cumm (4.4-10.8)
== END 2018-12-10 01:42 ==
PROVIDERS: PCP Emergency Medicine; Visit Provider Surgery
DX: D69.6 Thrombocytopenia, unspecified (principal)
CPT/HCPCS: 36415; 85027

== ENCOUNTER 2018-12-22 10:35 | Emergency (ER) | payer OTHER, SELFPAY ==
[2018-12-22 10:47] VITALS: BP 147/87; PULSE 73; RESP 15; TEMP 36.6; O2SAT 100
[2018-12-22 10:54] LABS: Bilirubin Negative (Negative); Blood Negative (Negative); Clarity Clear (Clear); Glucose 100 mg/dL (Negative); Ketones Negative (Negative); Leukocyte Esterase Negative (Negative); Nitrite Negative (Negative); Urobilinogen 0.2 EU/dL (Up TO 0.2); pH 5.5 (5-8)
--- NOTE | 2018-12-22 11:09 | ED.GENADUL_ITS ---
Discharge Plan Disposition Patient Disposition: HOME Discharge Details Chief Complaint: Abd Prob Clinical Impression: Hernia, inguinal, left Primary Care Provider: Flavio Wick ED Provider: Kendall Ruby Home Meds and New Rx's Prescriptions: No Action triamcinolone acetonide 0.1 % lotion 1 applic Topical DAILY Qty: 60 RF: 6 ciprofloxacin HCl [Cipro] 500 mg tablet 500 mg PO Q12H Qty: 30 RF: 0 epinephrine 0.3 MG/0.3 ML auto-injector 0.3 mg IM PRN Qty: 3 RF: 4 betamethasone, augmented [Diprolene] 60 ML lotion 60 ml Topical DAILY Qty: 1 RF: 2 acetaminophen [Tylenol] 325 mg Tablet 650 mg PO Q6H PRN PRNQty: 30 RF: 0 ibuprofen 600 mg tablet 600 mg PO QID PRN (Reason: fever or pain) Qty: 30 RF: 0 Discharge Instructions Instructions: Inguinal Hernia (ED) Additional Instructions: Avoid heavy lifting over 25 pounds until seen and evaluated by surgery. If symptoms return, lie flat and gently pushed on the area to try to reduce the hernia. If pain or symptoms persist return to the emergency department as soon as possible. Return should she develop abdominal distention or vomiting Referrals: Julisa Salamanca MD [ [facility] STAFF PHYSICIAN] - 1 day Medical Decision Making This is a nontoxic-appearing 73-year-old male presenting to the emergency department with complaints concerning for left indirect inguinal hernia. Palpable hernia on exam which was reduced while supine on the exam table. No return in symptoms throughout his course in the emergency department. No abdominal pain distention or vomiting to suggest incarceration. Labs here are within normal limits compared to baseline. Case discussed with general surgery Dr. Salamanca who recommends limit lifting to less than 25 pounds. Discussed follow-up and return precautions with the patient. Referral placed to general surgery HPI General Date/Time Provider Initiated Documentation: 12/22/18 11:00 . HPI Narrative: Patient is a 73-year-old gentleman with significant history of lap cholecystectomy, recent prostatitis treatment status post Cipro who presents with 3 days of lower groin burning sensation. Pain seems to worsen while standing and improve while lying flat. No vomiting or nausea. He noted the pain shortly after fishing. No diarrhea or constipation. No testicular pain. Related Data Home Medications Medication Instructions Recorded Confirmed epinephrine 0.3 mg IM PRN #3 01/05/13 12/22/18 betamethasone, augmented 60 ml TOPICAL DAILY #1 script 02/25/15 12/22/18 [Diprolene] acetaminophen [Tylenol] 650 mg PO Q6H PRN PRN #30 tab 11/26/18 12/22/18 ibuprofen 600 mg PO QID PRN #30 tab 11/26/18 12/22/18 ciprofloxacin HCl 500 mg tablet 500 mg PO Q12H #30 tab 12/02/18 12/11/18 triamcinolone acetonide 0.1 % 1 applic TOPICAL DAILY #60 ml 12/02/18 12/22/18 lotion Previous Rx's Medication Instructions Recorded acetaminophen [Tylenol] 650 mg PO Q6H PRN PRN #30 tab 11/26/18 ibuprofen 600 mg PO QID PRN #30 tab 11/26/18 ciprofloxacin HCl 500 mg tablet 500 mg PO Q12H #30 tab 12/02/18 triamcinolone acetonide 0.1 % 1 applic TOPICAL DAILY #60 ml 12/02/18 lotion Allergies Allergy/AdvReac Type Severity Reaction Status Date / Time venom-honey bee Allergy Severe HIVES Verified 12/22/18 10:53 General Stated Complaint: Abd Prob ANY: 3 Review of Systems Constitutional Denies anorexia, Denies chills, Denies fatigue, Denies fever(s), Denies lethargy, Denies weakness and Denies weight gain Cardiovascular Denies chest pain and Denies leg edema Gastrointestinal Reports abdominal pain, Denies hematochezia, Denies constipation, Denies cramping, Denies diarrhea, Denies nausea, Denies vomiting and Denies hematemesis Genitourinary Denies dysuria, Denies flank pain, Reports scrotal swelling, Denies testicular mass and Denies testicular pain Musculoskeletal Denies back pain and Denies numbness Integumentary/Breasts Denies erythema, Denies rash and Denies wounds Neurologic Denies numbness and Denies weakness Endocrine Denies fatigue PFSH Medical History Adenomatous colon polyp BPH (benign prostatic hypertrophy) Lumbago Surgical History Extraction of cataract S/P laparoscopic cholecystectomy (Acute ~11/25/18) Family History Mother Diabetes Heart disease Hyperlipidemia Stroke Father No problems noted. Sister No problems noted. 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 Pets and animals: No What type of physical activity do you participate in: decline to answer Dorothy/Denominational: Tenriism Special dorothy needs: No Do you feel safe at home: Yes Do you feel safe in your relationship?: Yes Exam Const General: cooperative, healthy appearing, comfortable and no acute distress Orientation: alert, awake and oriented x3 HENMT Head: normal to inspection Chest Chest: normal inspection of the chest Resp Effort & Inspection: normal respiratory effort Auscultation: clear to auscultation bilaterally Cardio Palpation: normal PMI Rate: regular rate Rhythm: regular rhythm Heart Sounds: S1 normal Pulses: normal peripheral pulses GI Palpation: hernia indirect inguinal on the left (tenderness w/palpation) Male General Exam: Yes normal external exam Penis: normal penis Scrotum: scrotum normal Testes: normal Back/Spine/Pelvis Back: no CVA tenderness Thoracic/Lumbar Spine: thoracic and lumbar spine normal to inspection Skin General skin exam: no rashes or lesions noted Extrem General: normal to inspection Course Vital Signs Temperature 36.6 C 12/22/18 10:47 Pulse 73 12/22/18 10:47 Respiratory Rate 15 12/22/18 10:47 Blood Pressure 147/87 H 12/22/18 10:47 Pulse Oximetry 100 12/22/18 10:47 Temperature 36.6 C 12/22/18 10:47 Temperature Source Temporal Artery Scan 12/22/18 10:47 Pulse 73 12/22/18 10:47 Respiratory Rate 15 12/22/18 10:47 Respiratory Effort Non-Labored 12/22/18 10:52 Blood Pressure 147/87 H 12/22/18 10:47 Blood Pressure Position Sitting 12/22/18 10:47 Pulse Oximetry 100 12/22/18 10:47 Oxygen Delivery Method Room Air 12/22/18 10:47 Oxygen Flow Rate 0 12/22/18 10:47 Pain Level 9 12/22/18 10:47 Lab/Test Results Lab/Test Results: Laboratory Tests Range/Units 12/22/18 10:45 Urine Color (Yellow) Yellow Urine Clarity (Clear) Clear Urine pH (5-8) 5.5 Ur Specific [place] (1.005-1.025) 1.020 Urine Protein (Negative) mg/dL Negative Urine Ketones (Negative) mg/dL Negative Urine Blood (Negative) Negative Urine Nitrite (Negative) Negative Urine Bilirubin (Negative) Negative Urine Urobilinogen (Up TO 0.2) EU/dL 0.2 Ur Leukocyte Esterase (Negative) Negative Urine Glucose (Negative) mg/dL 100
[2018-12-22 11:23] LABS: Lactate 1.3 mmol/L (0.6-1.4)
[2018-12-22 11:25] LABS: Abs Immature Grans 0.01 k/cumm (0.0-0.09); Absolute Eosinophil Count 0.02 k/cumm (0.0-0.7); Absolute Lymphocyte Count 1.37 k/cumm (1.2-3.4); Absolute Monocyte Count 0.53 k/cumm (0.11-0.7); Absolute Neutrophil Count 1.15 k/cumm (1.2-6.7); Eosinophils % 0.6; HCT 43.5 % (40.0-50.0); Immature Grans % 0.3; Lymphocytes % 44.5; Mean Corp. HGB Concentration 34.5 g/dL (32.0-36.0); Mean Corpuscular Hemoglobin 31.3 pg (27.0-33.0); Mean Corpuscular Volume 90.8 fL (80-95); Mean Platelet Volume 12.9 fL (8.0-11.0); Monocytes % 17.2; Neutrophils % 37.4; RBC 4.79 m/cumm (4.50-6.00); RBC Distribution Width 12.1 % (11.8-14.1); White Blood Cell Count 3.08 k/cumm (4.4-10.8)
[2018-12-22 11:44] LABS: Platelet Count 86 x1000/uL (130-400)
[2018-12-22 11:45] LABS: ALT 29 U/L (12-78); AST 21 U/L (15-37); Alkaline Phosphatase 71 U/L (46-116); Anion Gap 9.3 mmol/L (3-11); BUN 16 mg/dL (7-18); Bilirubin, Total 0.8 mg/dL (0.2-1.0); CO2 23.7 mmol/L (21.0-32.0); Calcium 9.4 mg/dL (8.5-10.1); Chloride 104 mmol/L (98-107); Diff Comment Agrees w/ Instrument; Glucose 135 mg/dL (70-100); Magnesium 1.9 mg/dL (1.8-2.4); Potassium 4.4 mmol/L (3.5-5.1); RBC Morphology Normal; Sodium 137 mmol/L (136-145); Total Protein 8.1 g/dL (6.4-8.2)
[2018-12-22 12:05] VITALS: BP 123/80; PULSE 55; RESP 16; TEMP 36.7; O2SAT 98
--- NOTE | 2018-12-22 17:16 | NUR.NOTE ---
Nursing Note: Faxed referral to [facility] for follow up. Nilam Pardo.
== END 2018-12-22 12:34 | disposition home or self-care (01) ==
PROVIDERS: Emergency Provider Physician Assistant; PCP Emergency Medicine
DX: K40.90 Unilateral inguinal hernia, without obstruction or gangrene, not specified as recurrent (principal)
CPT/HCPCS: 80053; 99282; 81003; 83605; 83735; 85025

== ENCOUNTER 2019-03-06 07:00 | Outpatient (CLI) | payer OTHER, SELFPAY ==
[2019-03-06 13:15] LABS: Uric Acid 6.9 mg/dL (3.5-7.2)
[2019-03-06 13:35] LABS: Hemoglobin A1C 6.7 % (4.5-6.2)
== END 2019-03-06 07:20 ==
PROVIDERS: PCP Emergency Medicine; Visit Provider Emergency Medicine
DX: E11.9 Type 2 diabetes mellitus without complications (principal); Z00.00 Encounter for general adult medical examination without abnormal findings; Z13.89 Encounter for screening for other disorder
CPT/HCPCS: 36415; 83036; 84550

== ENCOUNTER 2019-10-29 17:24 | Emergency (ER) | payer OTHER, SELFPAY ==
[2019-10-29 17:30] VITALS: BP 142/83; PULSE 66; RESP 16; TEMP 36.5; O2SAT 98
--- NOTE | 2019-10-29 18:17 | ED.GENADUL_ITS ---
Discharge Plan Disposition Patient Disposition: HOME Condition: Stable Discharge Details Chief Complaint: Laceration Clinical Impression: [place] injury to finger Primary Care Provider: Flavio Wick ED Provider: Chris Hylton Home Meds and New Rx's Prescriptions: New cephalexin [Keflex] 500 mg capsule 500 mg PO TID Qty: 9 RF: 0 Continued omeprazole 20 mg capsule,delayed release(DR/EC) 20 mg PO DAILY Qty: 90 RF: 3 triamcinolone acetonide 0.1 % lotion 1 applic Topical DAILY Qty: 60 RF: 6 epinephrine 0.3 MG/0.3 ML auto-injector 0.3 mg IM PRN Qty: 3 RF: 4 acetaminophen [Tylenol] 325 mg Tablet 650 mg PO Q6H PRN PRNQty: 30 RF: 0 ibuprofen 600 mg tablet 600 mg PO QID PRN (Reason: fever or pain) Qty: 30 RF: 0 Discharge Instructions Instructions: Puncture Wound (ED) Additional Instructions: Please take antibiotic as prescribed. Please contact your primary care physician to arrange follow-up. Return to the ER for any worsening or new concerning symptoms. Referrals: Flavio Wick, [Primary Care Provider] - Discharge Data Discharge Date/Time-TO BE ENTERED AT DEPARTURE: 10/29/19 18:40 Medical Decision Making 74-year-old male with fishhook embedded in left distal third digit. Patient consented to fishhook removal. [place] removed with string technique without complication. We will give tetanus immunization as cannot identify tetanus status from PCP documentation. Plan to give 3 days of tetanus prophylaxis. Usual customary discharge instructions were provided. HPI General Mode of arrival: ambulatory . Date/Time Provider Initiated Documentation: 10/29/19 17:32 . Limitations to Documentation: no limitations . Information obtained by: patient . HPI Narrative: 74-year-old male with fishhook embedded in left distal third digit. Patient notes he had an accident with the radiologist prior to arrival while fishing. Hook is barbed. He has pain in his finger that is moderate to severe and worse with any movement of the hook. Related Data Home Medications Medication Instructions Recorded Confirmed epinephrine 0.3 mg IM PRN #3 01/05/13 10/29/19 acetaminophen [Tylenol] 650 mg PO Q6H PRN PRN #30 tab 11/26/18 10/29/19 ibuprofen 600 mg PO QID PRN #30 tab 11/26/18 10/29/19 triamcinolone acetonide 0.1 % 1 applic TOPICAL DAILY #60 ml 12/02/18 10/29/19 lotion omeprazole 20 mg capsule,delayed 20 mg PO DAILY #90 cap 03/06/19 10/29/19 release cephalexin [Keflex] 500 mg PO TID #9 cap 10/29/19 Previous Rx's Medication Instructions Recorded acetaminophen [Tylenol] 650 mg PO Q6H PRN PRN #30 tab 11/26/18 ibuprofen 600 mg PO QID PRN #30 tab 11/26/18 triamcinolone acetonide 0.1 % 1 applic TOPICAL DAILY #60 ml 12/02/18 lotion omeprazole 20 mg capsule,delayed 20 mg PO DAILY #90 cap 03/06/19 release cephalexin [Keflex] 500 mg PO TID #9 cap 10/29/19 Allergies Allergy/AdvReac Type Severity Reaction Status Date / Time venom-honey bee Allergy Severe HIVES Verified 10/29/19 17:38 General Stated Complaint: Laceration ANY: 4 Review of Systems Narrative: as per hpi [facility] Family History (Updated 03/11/19 @ 12:55 by Ray Ruth) Mother , AGE 92 Diabetes Heart disease Hyperlipidemia Stroke Father , age 59 No problems noted. Sister No problems noted. Brother , age 81 Heart disease Stroke Son No problems noted. Daughter No problems noted. Daughter No problems noted. 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 Pets and animals: No Sexually active: Yes Do you think of yourself as: straight/heterosexual Current gender identity: male What is your relationship status?: How often do you talk on the phone with friends or family?: once per week How often do you get together with friends or relatives?: three or more times per week How often do you attend buddhist or congregational services?: 1-3 times per year Do you belong to any clubs or organized social groups?: no Panel score (0-1 are the most socially isolated patients): 1 What type of physical activity do you participate in: decline to answer Duration: decline to answer Frequency: decline to answer Dorothy/Spiritism: Anabaptist Special dorothy needs: No Seatbelt use: always Drive intox or ride w/intox 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 Do you feel safe at home: Yes Do you feel safe in your relationship?: Yes Exam Const General: cooperative and healthy appearing Extrem Left upper extremity: hand (fishhook embedded in left distal third digit) Details: neuromotor exam normal, neurosensory exam normal and normal ROM of fingers Course Vital Signs Vital signs: Vital Signs Temperature 36.5 C 10/29/19 17:30 Pulse 66 10/29/19 17:30 Respiratory Rate 16 10/29/19 17:30 Blood Pressure 142/83 H 10/29/19 17:30 Pulse Oximetry 98 10/29/19 17:30 Temperature 36.5 C 10/29/19 17:30 Temperature Source Skin 10/29/19 17:30 Pulse 66 10/29/19 17:30 Respiratory Rate 16 10/29/19 17:30 Respiratory Effort 10/29/19 17:40 Blood Pressure 142/83 H 10/29/19 17:30 Blood Pressure Position Sitting 10/29/19 17:30 Pulse Oximetry 98 10/29/19 17:30 Oxygen Delivery Method Room Air 10/29/19 17:30 Oxygen Flow Rate 0 10/29/19 17:30 Pain Level 0 10/29/19 17:30
[2019-10-29] MEDS: Cephalexin 500 MG CAP PO (18:30)
[2019-10-29] MEDS: Bacitracin 1 PACKET TP (19:11)
== END 2019-10-29 18:40 | disposition home or self-care (01) ==
LOC: ER 20:06
PROVIDERS: Emergency Provider Student in an Organized Health Care Education/Training Program; PCP Emergency Medicine
DX: S61.243A Puncture wound with foreign body of left middle finger without damage to nail, initial encounter (principal); W45.8XXA Other foreign body or object entering through skin, initial encounter
CPT/HCPCS: 90471; 99283; 99282

== ENCOUNTER 2019-12-18 16:17 | Emergency (ER) | payer OTHER, SELFPAY ==
[2019-12-18 16:20] VITALS: BP 142/98; PULSE 69; RESP 16; TEMP 36.8; O2SAT 99
--- NOTE | 2019-12-18 16:41 | W.ED.GENAD ---
Discharge Plan Disposition Patient Disposition: HOME Condition: Stable Discharge Details Chief Complaint: Allergic Clinical Impression: Bee sting reaction Primary Care Provider: Flavio Wick ED Provider: Raina Davenport Home Meds and New Rx's Prescriptions: New prednisone 20 mg tablet 40 mg PO DAILY 3 Days Qty: 6 RF: 0 Continued omeprazole 20 mg capsule,delayed release(DR/EC) 20 mg PO DAILY Qty: 90 RF: 3 epinephrine 0.3 MG/0.3 ML auto-injector 0.3 mg IM PRN Qty: 3 RF: 4 Discharge Instructions Instructions: Insect Bite or Sting (ED) Additional Instructions: Drink plenty of fluids and get plenty of rest. Alternate tylenol and motrin as needed and directed for pain. Take the steroids until finished. Take Benadryl as needed and directed for itching or rash. Follow-up with your primary care doctor in 1 week. Return to the emergency department with any worsening or new concerning symptoms. Discharge Data Discharge Date/Time-TO BE ENTERED AT DEPARTURE: 12/18/19 17:40 Discharge Physician: Raina Davenport Medical Decision Making 74-year-old male presents for pruritic rash noted to both arms and left leg status post bee stings. No oral respiratory involvement. No history of anaphylaxis to bees. Vitals within normal limits. Normal oropharynx. Patient is speaking in full sentences. Lungs clear. Do not see an indication for epinephrine, IV or fluids. A dose of oral steroids and Benadryl given here as well as prescription for home. Advised to follow up with the primary care doctor for re-evaluation. Usual and customary return precautions given prior to discharge. HPI General Mode of arrival: ambulatory. Date/Time Provider Initiated Documentation: 12/18/19 16:18. Limitations to Documentation: no limitations. Information obtained by: patient. HPI Narrative: Patient is a 74-year-old male with a history of rash reaction to bee stings who presents for itchy rash to arms and legs after 3 bee stings today. Patient has not taken any medication since his bee stings. He was stung twice in the right arm and once in the left leg and developed a rash around these areas and then also in his left arm. He denies any headache, nausea, vomiting, abdominal pain, throat swelling or itching, difficulty breathing or chest pain. He denies any previous history of anaphylaxis to bee stings. He states he came here because his girlfriend made me . Related Data Home Medications Medication Instructions Recorded Confirmed epinephrine 0.3 mg IM PRN #3 01/05/13 12/18/19 omeprazole 20 mg capsule,delayed 20 mg PO DAILY #90 cap 03/06/19 12/18/19 release prednisone 40 mg PO DAILY 3 Days #6 tab 12/18/19 Previous Rx's Medication Instructions Recorded omeprazole 20 mg capsule,delayed 20 mg PO DAILY #90 cap 03/06/19 release prednisone 40 mg PO DAILY 3 Days #6 tab 12/18/19 Allergies Allergy/AdvReac Type Severity Reaction Status Date / Time venom-honey bee Allergy Severe HIVES Verified 12/18/19 16:24 General Stated Complaint: Allergic ANY: 3 Review of Systems All systems reviewed & are unremarkable except as noted in HPI and below Constitutional Constitutional: Reports as per HPI, Denies chills and Denies fever(s) Eyes Eyes: Denies blurry vision ENT Ears, Nose, Mouth, and Throat: Denies dizziness, Denies sore throat and Denies throat swelling Cardiovascular Cardiovascular: Denies chest pain and Denies dyspnea Respiratory Respiratory: Denies cough and Denies dyspnea Gastrointestinal Gastrointestinal: Denies abdominal pain, Denies diarrhea and Denies vomiting Genitourinary Genitourinary: Denies hematuria and Denies dysuria Musculoskeletal Musculoskeletal: Denies back pain and Denies numbness Integumentary/Breasts Skin/Breast: Denies lesions and Reports rash Neurologic Neurologic: Denies dizziness, Denies localized weakness and Denies numbness Allergic/Immunologic Allergic/Immunologic: Denies throat swelling [facility] Family History (Updated 03/11/19 @ 12:55 by Ray Ruth) Mother , AGE 92 Diabetes Heart disease Hyperlipidemia Stroke Father , age 59 No problems noted. Sister No problems noted. Brother , age 81 Heart disease Stroke Son No problems noted. Daughter No problems noted. Daughter No problems noted. 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 Pets and animals: No Sexually active: Yes Do you think of yourself as: straight/heterosexual Current gender identity: male What is your relationship status?: How often do you talk on the phone with friends or family?: once per week How often do you get together with friends or relatives?: three or more times per week How often do you attend islam or spiritism services?: 1-3 times per year Do you belong to any clubs or organized social groups?: no Panel score (0-1 are the most socially isolated patients): 1 What type of physical activity do you participate in: decline to answer Duration: decline to answer Frequency: decline to answer Dorothy/Roman Catholic: Shinto Special dorothy needs: No Seatbelt use: always Drive intox or ride w/intox transport 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 Do you feel safe at home: Yes Do you feel safe in your relationship?: Yes Exam Const General: cooperative, healthy appearing and no acute distress HENMT Head: normal to inspection Face and sinus: normal facial exam Eyes General: appearance normal, both eyes and all related structures EOM: EOM intact bilaterally Neck Neck: normal visual inspection and No submandibular swelling Lymphatic: no lymphadenopathy noted Chest Chest: normal inspection of the chest and no tenderness Resp Effort & Inspection: normal respiratory effort and able to speak in complete sentences Auscultation: clear to auscultation bilaterally Cardio Rate: regular rate Rhythm: regular rhythm GI Inspection: normal to inspection Palpation: soft, not firm, not rigid and nontender Auscultation: normal bowel sounds Skin Other: Large areas of urticaria noted to right arm and left leg. Smaller areas of urticaria noted to left upper arm. Neuro General: patient alert, patient awake and patient oriented x3 Cognition: normal cognition Speech: speech normal Motor: muscle tone normal throughout Sensory Exam: no sensory deficits noted Extrem General: normal to inspection, full ROM, capillary refill normal, no calf tenderness bilaterally and no edema Psych Appearance: grossly normal Mental Status: mental status grossly normal Speech and Movement: speech and movement normal Affect: normal affect Course Vital Signs Vital signs: Vital Signs Temperature 98.2 F 12/18/19 16:20 Pulse 69 12/18/19 16:20 Respiratory Rate 16 12/18/19 16:20 Blood Pressure 142/98 H 12/18/19 16:20 Pulse Oximetry 99 12/18/19 16:20 Temperature 98.2 F 12/18/19 16:20 Temperature Source Skin 12/18/19 16:20 Pulse 69 12/18/19 16:20 Respiratory Rate 16 12/18/19 16:20 Respiratory Effort 12/18/19 16:27 Blood Pressure 142/98 H 12/18/19 16:20 Blood Pressure Position Sitting 12/18/19 16:20 Pulse Oximetry 99 12/18/19 16:20 Oxygen Delivery Method Room Air 12/18/19 16:20 Oxygen Flow Rate 0 12/18/19 16:20 Pain Level 1 12/18/19 16:20
[2019-12-18] MEDS: predniSONE 20 MG TAB 60 MG PO (17:21)
== END 2019-12-18 17:40 | disposition home or self-care (01) ==
PROVIDERS: Emergency Provider Physician Assistant; PCP Emergency Medicine
DX: T63.441A Toxic effect of venom of bees, accidental (unintentional), initial encounter (principal); L50.0 Allergic urticaria; L29.9 Pruritus, unspecified
CPT/HCPCS: 99283; J7512

== ENCOUNTER 2019-12-21 07:28 | Outpatient (CLI) | payer OTHER, SELFPAY ==
[2019-12-26 01:35] LABS: SARS-CoV-2 RNA Undetected (Undetected); SARS-CoV-2 Specimen Source Nasopharynx
== END 2019-12-21 07:48 ==
PROVIDERS: PCP Emergency Medicine; Visit Provider Emergency Medicine
DX: Z11.59 Encounter for screening for other viral diseases (principal)
CPT/HCPCS: U0003

== ENCOUNTER 2020-03-09 12:38 | Outpatient (REF) | payer OTHER, SELFPAY ==
[2020-03-09 22:02] LABS: Anion Gap 7.2 mmol/L (3-11); BUN 18 mg/dL (7-18); CO2 26.8 mmol/L (21.0-32.0); CREATININE 1.03 mg/dL (0.70-1.30); Calcium 9.2 mg/dL (8.5-10.1); Calculated LDL 144 mg/dL (<100); Chloride 104 mmol/L (98-107); Cholesterol 199 mg/dL (<200); Glucose 117 mg/dL (74-106); HDL Cholesterol 38 mg/dL (40-60); Potassium 4.6 mmol/L (3.5-5.1); Sodium 138 mmol/L (136-145); Triglyceride 86 mg/dL (<150)
[2020-03-09 22:05] LABS: Hemoglobin A1C 7.2 % (<5.7)
[2020-03-09 22:20] LABS: Uric Acid 6.7 mg/dL (3.5-7.2)
[2020-03-10 18:11] LABS: PSA, Screening 0.6 ng/mL (0.0-6.5)
== END 2020-03-09 12:58 ==
LOC: LBN 12:38
PROVIDERS: PCP Emergency Medicine; Visit Provider Emergency Medicine
DX: E11.9 Type 2 diabetes mellitus without complications (principal); I10 Essential (primary) hypertension; M10.9 Gout, unspecified; Z12.5 Encounter for screening for malignant neoplasm of prostate
CPT/HCPCS: 80048; 80061; 84153; 83036; 84550

== ENCOUNTER 2020-09-20 09:34 | Outpatient (CLI) | payer OTHER, SELFPAY ==
[2020-09-20 13:09] LABS: Calculated LDL 71 mg/dL (<100); Cholesterol 124 mg/dL (<200); HDL Cholesterol 39 mg/dL (40-60); Triglyceride 70 mg/dL (<150)
== END 2020-09-20 09:35 | disposition home or self-care (01) ==
LOC: LOS 09:34
PROVIDERS: PCP Emergency Medicine; Visit Provider Emergency Medicine
DX: E11.9 Type 2 diabetes mellitus without complications (principal)
CPT/HCPCS: 36415; 80061; 83036

== ENCOUNTER 2021-03-23 14:54 | Outpatient (REF) | payer MEDICARE, SELFPAY ==
[2021-03-23 13:28] LABS: Anion Gap 8.6 mmol/L (3-11); BUN 17 mg/dL (7-18); CO2 28.4 mmol/L (21.0-32.0); Calcium 9.2 mg/dL (8.5-10.1); Chloride 104 mmol/L (98-107); Glucose 116 mg/dL (74-106); Potassium 4.4 mmol/L (3.5-5.1); Sodium 141 mmol/L (136-145)
[2021-03-23 13:54] LABS: Hemoglobin A1C 6.3 % (<5.7)
== END 2021-03-23 14:55 | disposition home or self-care (01) ==
LOC: NCHCN 14:54
PROVIDERS: PCP Emergency Medicine; Visit Provider Emergency Medicine
DX: E11.9 Type 2 diabetes mellitus without complications (principal); I10 Essential (primary) hypertension
CPT/HCPCS: 80048; 83036

== ENCOUNTER 2021-03-28 01:19 | Outpatient (CLI) | payer MEDICARE, SELFPAY ==
--- NOTE | 2021-03-28 09:00 | NS.NUTBLAN_ITS ---
Dilan was referred to Medical Nutrition Therapy for Diabetes Self Management Education. PMH: DM2, mild obesity BMI 33, DM meds: 500 mg metformin BID. Most recent A1C (03/23/21) 6.3% indicates well controlled DM. Session today focused on how to follow a well balanced meal plan with focus on complex carbs, lean protein and healthy fats. Dilan typically skips breakfast, but eats mostly home cooked meals. Reviewed importance of balancing carb/protein and fats at meals and importance of daily exercise. Dilan is going to [place] for the winter and plans on walking daily. Encouraged him to target a 10% weight loss with goal weight of 180-190 lbs. Provided written material and contact information. No follow up planned at this time. Will be available prn.
== END 2021-03-28 01:20 | disposition home or self-care (01) ==
LOC: DS 01:20
PROVIDERS: PCP Emergency Medicine; Visit Provider Dietitian, Registered
DX: E11.9 Type 2 diabetes mellitus without complications (principal); E66.8 Other obesity; Z68.33 Body mass index [BMI] 33.0-33.9, adult; Z71.3 Dietary counseling and surveillance
CPT/HCPCS: 97802

== ENCOUNTER 2021-10-23 08:32 | Outpatient (CLI) | payer MEDICARE, SELFPAY ==
[2021-10-23 13:08] LABS: Abs Immature Grans 0.03 10^3/uL (0.0-0.06); Absolute Basophil Count 0.01 10^3/uL (0.0-0.2); Absolute Eosinophil Count 0.01 10^3/uL (0.0-0.7); Absolute Lymphocyte Count 1.36 10^3/uL (1.2-3.4); Absolute Monocyte Count 0.47 10^3/uL (0.1-0.8); Absolute Neutrophil Count 1.28 10^3/uL (1.2-6.7); Basophils % 0.3; Eosinophils % 0.3; HCT 47.5 % (40.0-50.0); HGB 15.6 g/dL (13.5-17.5); Immature Grans % 0.9; MCH 31.8 pg (27.0-33.0); MCHC 32.8 % (32.0-36.0); MCV 97 fL (80-95); MPV 12.2 fL (8.0-11.0); Monocytes % 14.9; Neutrophils % 40.6; Platelet Count 105 10^3/uL (130-400); RBC 4.91 10^6/uL (4.36-5.78); RDW 12.7 % (11.8-14.1); RDW-SD 45.3 fL; WBC 3.16 10^3/uL (4.4-10.8)
[2021-10-23 13:25] LABS: Uric Acid 6.4 mg/dL (3.5-7.2)
[2021-10-23 13:30] LABS: Hemoglobin A1C 6.1 % (<5.7)
[2021-10-23 16:19] LABS: Calculated LDL 66 mg/dL (<100); Cholesterol 121 mg/dL (<200); HDL Cholesterol 40 mg/dL (40-60); Triglyceride 77 mg/dL (<150)
[2021-10-23 17:01] LABS: COMMENT (LAB VIEW ONLY) 162.76 mg/dL
[2021-10-25 10:43] LABS: BUN 14 mg/dL (7-18); Chloride 106 mmol/L (98-107); Glucose 146 mg/dL (74-106); Potassium 4.5 mmol/L (3.5-5.1); Sodium 142 mmol/L (136-145)
== END 2021-10-23 08:33 | disposition home or self-care (01) ==
LOC: LOS 08:33
PROVIDERS: PCP Family Medicine; Visit Provider Family Medicine
DX: E11.9 Type 2 diabetes mellitus without complications (principal); D69.6 Thrombocytopenia, unspecified; M10.9 Gout, unspecified
CPT/HCPCS: 36415; 80061; 82947; 84520; 85027; 81373; 82043; 82435; 82565; 82570; 83036; 84132; 84295; 84550; 85025

== ENCOUNTER 2022-09-21 08:34 | Outpatient (CLI) | payer MEDICARE, SELFPAY ==
[2022-09-21 13:01] LABS: Hemoglobin A1C 6.6 % (<5.7)
[2022-09-21 13:30] LABS: COMMENT (LAB VIEW ONLY) 158.39 mg/dL; Microalb ug/mg Crea 3.3 ug/mg Cr
== END 2022-09-21 08:35 | disposition home or self-care (01) ==
LOC: LOS 08:34
PROVIDERS: PCP Nurse Practitioner Family; Referring Provider Nurse Practitioner Family; Visit Provider Nurse Practitioner Family
DX: E11.9 Type 2 diabetes mellitus without complications (principal)
CPT/HCPCS: 36415; 82043; 82570; 83036

== ENCOUNTER 2023-11-08 10:48 | Outpatient (CLI) | payer MEDICARE, SELFPAY ==
--- NOTE | 2023-11-08 10:45 | RT.EKG_ITS ---
APPROVED REPORT Exam: Resting ECG Reason for Exam: cardiac evaluation Patient Location: O HR:54 bpm ECG Measurements Heart Rate 54 AXIS DE 232 P 9 QRSd 86 QRS -26 QT 442 T -53 QTc 419 Conclusion Sinus rhythm...normal P axis, V-rate 50- 99 Prolonged DE interval...DE >220, V-rate 50- 90 Abnormal R-wave progression, early transition...QRS area>0 in V2 Inferior infarct, age indeterminate...Q>35mS, T neg, II III aVF Baseline wander in lead(s) V2,V6
== END 2023-11-08 10:49 | disposition home or self-care (01) ==
LOC: DI.CARD 10:49
PROVIDERS: PCP Nurse Practitioner Family; Visit Provider Internal Medicine Cardiovascular Disease
DX: I21.09 ST elevation (STEMI) myocardial infarction involving other coronary artery of anterior wall (principal)
CPT/HCPCS: 93010

== ENCOUNTER → 2023-11-08 11:08 | Outpatient (BNVA) | payer MEDICARE, SELFPAY | PROVIDERS: PCP Nurse Practitioner Family; Referring Provider Nurse Practitioner Family; Visit Provider Internal Medicine Cardiovascular Disease | DX: I21.11 ST elevation (STEMI) myocardial infarction involving right coronary artery (principal); I44.0 Atrioventricular block, first degree | CPT/HCPCS: 93005; 99203 ==

== ENCOUNTER → 2024-03-06 10:53 | Outpatient (BNVA) | payer MEDICARE, SELFPAY | PROVIDERS: PCP Nurse Practitioner Family; Referring Provider Nurse Practitioner Family; Visit Provider Internal Medicine Cardiovascular Disease | DX: I25.10 Atherosclerotic heart disease of native coronary artery without angina pectoris (principal) | CPT/HCPCS: 99213 ==

== ENCOUNTER 2024-04-08 08:07 | Emergency (ER) | payer MEDICARE, SELFPAY ==
[2024-04-08 08:11] VITALS: BP 143/75; PULSE 50; RESP 12; TEMP 36.6; O2SAT 99
--- NOTE | 2024-04-08 08:15 | DI.RAD_ITS ---
Exam(s) XR THUMB LT EXAM: XR THUMB LT EXAM DATE/TIME: CLINICAL HISTORY: struck with cross bow string. TECHNIQUE: 2D digital imaging was performed of the left finger. Three views were obtained. PA/AP, oblique, and lateral views were obtained. COMPARISON: None. FINDINGS: BONES: On the PA/AP view, there is disruption of the cortex at the radial aspect of the base of the d istal phalanx of the thumb suspicious for nondisplaced fracture. No bony destructive lesion is seen. JOINTS: No dislocation is present. There are degenerative changes seen of the hand characterized by joint space narrowing and osteophytes. The findings are predominantly seen in the interphalangeal roshan ints and the 1st CMC joint. SOFT TISSUE: Normal. No radiopaque foreign bodies. IMPRESSION: Findings suspicious for nondisplaced fracture involving the radial aspect of the base of the distal p halanx of the thumb. DATA REPOSITORY: RADIATION DOSE DELIVERED:
--- OUTSIDE RECORDS SUMMARY | 2024-04-08 08:15 | XMS_ITS | Referral Summary ---
Author Organization [facility] Address [address] [place] [address] Care Team Providers Care Net Fisher Name Role Phone Flavio Wick DO Primary Care Provider +1- [phone] Social History Tobacco Use Types Packs/Day Years Used Date Smoking Tobacco: Never Assessed Interpersonal Safety Answer Date Record ed Physically Hurt Never 01/03/2020 Verbally Threaten Not on file 01/03/2020 Sex and Gender Information Value Date Recorded Sex Assigned at Not on file Gender Identity Not on file Sexual Orientation Not on file Plan of Treatment Not on file Care Teams Net Fisher Relationship Specialty Start Date End Date Flavio Wick DO [address] [place] [address] PCP - General 02/20/12
--- OUTSIDE RECORDS SUMMARY | 2024-04-08 08:15 | XMS_ITS | Encounter Summary ---
Author Organization [facility] Address [address] [place] [address] Care Team Providers Care Public Speaker Name Role Phone Flavio Wick DO Primary Care Provider +1- [phone] Encounter Details Date Type Department Care Team (Late st Contact Info) Description 05/20/2015 Results Only [facility] [phone] Magalis King, DO [address] [place] [address] Social History Tobacco Use Types Packs/Day Years Used Date Smoking Tobacco: Never Assessed Sex and Gender Information Value Date Recorded Sex Assigned at Not on file Gender Identity Not on file Sexual Orientation Not on file documented as of this encounter Plan of Treatment Not on file documented as of this encounter Procedures Procedure Name Priority Date/Time Associated Diagnosis Comments SURGICAL PATHOLOGY Routine 05/20/2015 7:26 EST documented in this encounter Results * SURGICAL PATHOLOGY (05/20/2015 7:26 EST) Pathology Report: SURGICAL PATHOLOGY REPORT Reports generated via electronic interface contain original data; however they are lacking the format of the original report. Caution should be taken when reading/interpret ing unformatted reports. Name: ? STEWARTRAMIRO ZAMORA ? Accession #: ? [id number] ? : ? 1945 (Age: 70) ??M ? Collect Date: ? 05/20/2015 ? Location: ? [facility] ? Receive Date: ? 05/21/2015 ? Provider: MAGALIS KING DO Copy to: FLAVIO Shepherd CHUCK DO ? Final Pathologic Diagnosis: A. ?DUODENUM, BULB, BIOPSY: - Mild peptic duodenitis. B. ?STOMACH, ANTRUM, BIOPSY: - Mild, reactive (chemical) gastropathy. C. ?GASTROESOPHAGEA L JUNCTION, BIOPSY: - Active erosive reflux esophagitis. - Negative for intestinal metaplasia; Negative for dysplasia. D. ?ESOPHAGUS, MID, BIOPSY: - Squamous mucosa with mild, reactive changes. Document reviewed and electronically signed by: MEMO HADDAD MD Report ??Date: 05/24/2015 12:03 By the signature above, the attending physician certifies that he/she has personally conducted a gross and/or microscopic examination of the described specimens and rendered or confirmed the above diagnosis. Specimen(s) Received: A. ??Duodenal bulb bx B. ??Gastric antrum bx C. ??GE junction D. ??Esophageal body/mid esophagus Clinical History: GERD Gross Description: A. ?Received in formalin labelled with proper patient identification (initials P, N) and duodenal bulb bx are three pink-casillas tissues (0.2 x 0.2 x 0.2 cm to 0.6 x 0.2 x 0.2 cm). Entirely submitted in A1. B. ?Received in formalin labelled with proper patient identification (initials P, N) and gastric antrum bx are three pink-casillas tissues (0.2 x 0.2 x 0.2 cm to 0.7 x 0.2 x 0.2 cm). Entirely submitted in B1. C. ?Received in formalin labelled with proper patient identification (initials P, N) and GE junction bx are five pink-casillas tissues (0.2 x 0.2 x 0.2 cm to 0.5 x 0.2 x 0.2 cm). Entirely submitted in C1 and C2. D. ?Received in formalin labelled with proper patient identification (initials P, N) and esophageal body/mid esophagus are two pink-casillas, focally hemorrhagic tissues (0.3 x 0.2 x 0.2 cm and 0.4 x 0.2 x 0.2 cm). Entirely submitted in D1. Deanna Verduzco 05/23/2015 8:39 AM End of Report [facility] 05/20/2015 7:26 EST 05/21/2015 7:26 EST Magalis King DO PATHOLOGY ORDERABLES Performing Organization Address City/State/[facility] Co de Phone Number [facility] [address] [place] [address] documented in this encounter Visit Diagnoses Not on filedocumented in this encounter Care Teams Public Speaker Relationship Specialty Start Date End Date Flavio Wick DO [facility] [place] [address] PCP - General 02/20/12 documented as of this encounter
--- OUTSIDE RECORDS SUMMARY | 2024-04-08 08:15 | XMS_ITS | Encounter Summary ---
Author Organization [facility] Address [address] [place] [address] Care Team Providers Care Senior Systems Developer Name Role Phone Flavio Wick DO Primary Care Provider +1- [phone] Encounter Details Date Type Department Care Team (Late st Contact Info) Description 03/10/2020 Lab Requisition [facility] Pathology & Laboratory Medicine - [facility] [address] [place], [place] [address] Outr Resulting Lab, Provider Social History Tobacco Use Types Packs/Day Years [...] Procedure Name Priority Date/Time Associated Diagnosis Comments PSA TOTAL, DIAGNOSTIC Routine 03/09/2020 12:05 EDT documented in this encounter Results * PSA TOTAL, DIAGNOSTIC (03/09/2020 12:05 EDT) PSA 0.6 0.0 - 6.5 ng/mL 03/10/2020 18:06 EDT [facility] Blood VENOUS BLOOD / Unknown 03/09/2020 12:05 EDT 03/10/2020 17:11 EDT Narrative [facility] - 03/10/2020 18:06 EDT NOTE: Serum PSA concentration should not be interpreted as absolute evidence for the presence or absence of malignant disease. Assayed on Siemens ADVIA Ocutronicsaur XPT using chemiluminescent technology.??Values obtained by using different assay methods cannot be used interchangeably. Provider Outr Resulting Lab CHEMISTRY & BLOOD GAS ORDERABLES [facility] [address] [place] [address] documented in this encounter Visit Diagnoses Not on filedocumented in this encounter Care Teams Senior Systems Developer Relationship Specialty Start Date End Date Flavio Wick DO [address] [place] [address] PCP - General 02/20/12 documented as of this encounter
--- OUTSIDE RECORDS SUMMARY | 2024-04-08 08:15 | XMS_ITS | Encounter Summary ---
Author Organization [facility] Address [address] [place] [address] Care Team Providers Care Recovery Specialist Name Role Phone Flavio Wick DO Primary Care Provider +1- [phone] Encounter Details Date Type Department Care Team (Latest Contact Info) Description 05/20/2015 10:34 EST - 05/20/2015 23:59 EST Hospital Encounter [address] [address] Unknown, Provider, MD Discharge Disposition: Home or Self Care Social History Tobacco Use Types Packs/Day Years Used Date Smoking Tobacco: Never Assessed Sex and Gender Information Value Date Recorded Sex Assigned at Not on file Gender Identity Not on file Sexual Orientation Not on file documented as of this encounter Discharge Disposition Disposition Code Departure Means Destination Home or Self Residential documented in this encounter Plan of Treatment Not on file documented as of this encounter Visit Diagnoses Not on filedocumented in this encounter Care Teams Recovery Specialist Relationship Specialty Start Date End Date Flavio Wick DO [address] [place] [address] PCP - General 02/20/12 documented as of this encounter
--- OUTSIDE RECORDS SUMMARY | 2024-04-08 08:15 | XMS_ITS | Encounter Summary ---
Author Organization [facility] Address [address] [place] [address] Care Team Providers Care U.S. Revenue Officer Name Role Phone Unknown, Provider Primary Care Provider Unava ilable Encounter Details Date Type Department Care Team (Late st Contact Info) Description 02/13/2012 Results Only [facility] - [facility] [address] [place], [place] [address] Jason Méndez MD [address] [place], [place] [id number] Social History Tobacco Use Types Packs/Day Years Used Date Smoking Tobacco: Never Assessed Sex and Gender Information Value Date Recorded Sex Assigned at Not on file Gender Identity Not on file Sexual Orientation Not on file documented as of this encounter Plan of Treatment Not on file documented as of this encounter Procedures Procedure Name Priority Date/Time Associated Diagnosis Comments SURGICAL PATHOLOGY Routine 02/13/2012 0:00 EDT documented in this encounter Results * SURGICAL PATHOLOGY (02/13/2012 0:00 EDT) Pathology Report: SURGICAL PATHOLOGY REPORT Reports generated via electronic interface contain original data; however they are lacking the format of the original report. Caution should be taken when reading/interpreti ng unformatted reports. Name: ? RAMIRO WILLIAM ? Accession #: ? [id number] ? : ? 1945 (Age: 66) ??M ? Collect Date: ? 02/13/2012 ? Location: ? [facility] ? Receive Date: ? 02/13/2012 ? Provider: JASON MÉNDEZ MD Copy to: GRISELDA WOODS DO ? Final Pathologic Diagnosis: ? Colon, cecum, polyps, biopsy: 1. ?Fragments of tubular adenoma. See comment. 2. ?Fragments of sessile serrated adenoma/ polyp. Comment: ? Deeper levels have been examined. (Dr. Mcknight). Document reviewed and electronically signed by: PADMINI MCKNIGHT MD Report ??Date: 02/18/2012 17:25 By the signature above, the attending physician certifies that he/she has personally conducted a gross and/or microscopic examination of the described specimens and rendered or confirmed the above diagnosis. Specimen(s) Received: ? Cecal polyps x2 Clinical History: ? Colorectal screen Gross Description: ? Received in formalin labelled Ramiro William and #1 cecal polyps x2 are five light casillas biopsies and a single larger polyp. ??The biopsies vary in size from 0.2 x 0.2 x 0.1 cm up to 0.3 x 0.2 x 0.1 cm. ??The biopsies are submitted intact as (A1) and (A2). ??The polyp measures 0.5 x 0.3 x 0.3 cm and is inked, bisected and submitted entirely as (A3). ??(ANTONIO Huston)/tmchandu End of Report RASHARD BRIZUELA 02/13/2012 02/13/2012 15: 46 EDT Jason Méndez MD PATHOLOGY ORDERABLES [facility] BRIZUELA [address] [place] [address] documented in this encounter Visit Diagnoses Not on filedocumented in this encounter Care Teams U.S. Revenue Officer Relationship Specialty Start Date End Date Unknown, Provider, PCP - General 02/13/12 02/19/12 documented as of this encounter
--- OUTSIDE RECORDS SUMMARY | 2024-04-08 08:15 | XMS_ITS | Clinical Summary ---
Author Organization [facility] Address [address] [place] [address] Care Team Providers Care Meal Temperer Name Role Phone Flavio Wick DO Primary Care Provider +1- [phone] Social History Tobacco Use Types Packs/Day Years Used Date Smoking Tobacco: Never Assessed Interpersonal Safety Answer Date Record ed Physically Hurt Never 01/03/2020 Verbally Threaten Not on file 01/03/2020 Sex and Gender Information Value Date Recorded Sex Assigned at Not on file Gender Identity Not on file Sexual Orientation Not on file Plan of Treatment Health Maintenance Due Date Last Done Comments Hepatitis C Screen 1945 RSV Immunization ( o r 60+ Years) (1 - 1-dose 60+ series) 2006 Fall Risk Screening 2011 COVID-19 Vaccine (2022- season) 2023 Care Teams Meal Temperer Relationship Specialty Start Date End Date Flavio Wick DO [address] [place] [address] PCP - General 02/20/12
--- OUTSIDE RECORDS SUMMARY | 2024-04-08 08:15 | XMS_ITS | Encounter Summary ---
Author Organization [facility] Address [address] [place] [address] Care Team Providers Care Shoe Associate Name Role Phone Flavio Wick DO Primary Care Provider +1- [phone] Encounter Details Date Type Department Care Team (Latest Contact Info) Description 11/23/2018 14:26 EDT - 11/23/2018 23:59 EDT Hospital Encounter [address] [address] Unknown, Provider, MD Discharge Disposition: Home or Self Care Social History Tobacco Use Types Packs/Day Years Used Date Smoking Tobacco: Never Assessed Sex and Gender Information Value Date Recorded Sex Assigned at Not on file Gender Identity Not on file Sexual Orientation Not on file documented as of this encounter Discharge Disposition Disposition Code Departure Means Destination Home or Self Usp documented in this encounter Plan of Treatment Not on file documented as of this encounter Visit Diagnoses Not on filedocumented in this encounter Care Teams Shoe Associate Relationship Specialty Start Date End Date Flavio Wick DO [address] [place] [address] PCP - General 02/20/12 documented as of this encounter
--- OUTSIDE RECORDS SUMMARY | 2024-04-08 08:15 | XMS_ITS | Encounter Summary ---
Author Organization [facility] Address [address] [place] [address] Care Team Providers Care Carpenter Mine Name Role Phone Flavio Wick DO Primary Care Provider [phone] Encounter Details Date Type Department Care Team (Late st Contact Info) Description 11/25/2018 Results Only [facility] [phone] Celina Mahmodo MD [address] [place] [phone] Social History Tobacco Use Types Packs/Day Years Used Date Smoking Tobacco: Never Assessed Sex and Gender Information Value Date Recorded Sex Assigned at Not on file Gender Identity Not on file Sexual Orientation Not on file documented as of this encounter Plan of Treatment Not on file documented as of this encounter Procedures Procedure Name Priority Date/Time Associated Diagnosis Comments SURGICAL PATHOLOGY Routine 11/25/2018 9:09 EDT documented in this encounter Results * SURGICAL PATHOLOGY (11/25/2018 9:09 EDT) Pathology Report: SURGICAL PATHOLOGY REPORT Reports generated via electronic interface contain original data; however they are lacking the format of the original report. Caution should be taken when reading/interpret ing unformatted reports. Name: ? SERGEIRAMIRO ? Accession #: ? [id number] ? : ? 1945 (Age: 73) ??M ? Collect Date: ? 11/25/2018 ? Location: ? [facility] ? Receive Date: ? 11/25/2018 ? Provider: CELINA MAHMOOD MD Copy to: FLAVIO WICK DO ? Final Pathologic Diagnosis: GALLBLADDER, CHOLECYSTECTOMY: - Acute on chronic cholecystitis. Document reviewed and electronically signed by: MEMO HADDAD MD Report ??Date: 11/28/2018 09:11 By the signature above, the attending physician certifies that he/she has personally conducted a gross and/or microscopic examination of the described specimens and rendered or confirmed the above diagnosis. Specimen(s) Received: Gallbladder Clinical History: Acute cholecystitis Gross Description: ? Received in formalin labelled with proper patient identification (initials P, N) and gallbladder is a partially disrupted gallbladder (9.5 x 4.5 x 3.5 cm) with an attached segment of cystic duct (0.5 cm in length x 0.3 cm in diameter). ? The serosa is casillas-enciso, partially ragged, and hyperemic. The mucosa is casillas-brown with exudate and the wall is 0.5 cm in thickness. The cystic duct lumen is patent. The cystic duct margin is inked blue. No choleliths are present. ? Two wireless sales representative sections and the inked en face cystic duct margin are submitted in 1. Dr. Mares 11/26/2018 2:49 PM End of Report [facility] 11/25/2018 9:09 EDT 11/25/2018 9:09 EDT Celina Mahmood MD PATHOLOGY ORDERABLES [facility] [address] [place] [address] documented in this encounter Visit Diagnoses Not on filedocumented in this encounter Care Teams Carpenter Mine Relationship Specialty Start Date End Date Flavio Wick DO [address] [place] [address] [address] [place] [id number] PCP - General 02/20/12 documented as of this encounter
--- OUTSIDE RECORDS SUMMARY | 2024-04-08 08:15 | XMS_ITS | Clinical Summary ---
Author Organization [facility] [place] [address] [place] [address] Care Team Providers Care Planting Machine Crewman Name Role Phone Julieta Hurd MD Primary Care Provider [phone] Allergies No known active allergies Medications Medication Sig Dispensed Refills Start Date End Date Status betamethasone, augmented, (DIPROLENE) 0.05 % Lotion 0 12/01/2015 Active omeprazole (PRILOSEC) 20 mg Capsule, Delayed Release(E.C.) take 1 capsule by mouth once daily 0 02/22/2016 Active ranitidine (ZANTAC) 150 mg Tablet take 1 tablet by mouth twice a day 0 11/25/2015 Active Active Problems Problem Noted Date Diagnosed Date Dermatitis 03/13/2016 Immunizations Name Administration Dates Next Due Td Adult (not absorbed) 05/07/2006 Social History Tobacco Use Types Packs/Day Years Used Date Smoking Tobacco: Former Smokeless Tobacco: Current Chew Sex and Gender Information Value Date Recorded Sex Assigned at Not on file Gender Identity Not on file Sexual Orientation Not on file Plan of Treatment Health Maintenance Due Date Last Done Comments Hepatitis C Screening 1964 Zoster vaccine (1 of 2) 1996 Advance Directive 2001 Tetanus/Diphtheria/Pertussis Vaccines (1 - Tdap) 05/0805/07/2006 Pneumoccocal Vaccine: 65+ (1 of 1 - PCV) 2011 Covid-19 Vaccine (1 - season) 2024 Influenza (Flu) vaccine (1 o f 1 - Influenza standard series) 02/02/2024 Care Teams Planting Machine Crewman Relationship Specialty Start Date End Date Julieta Hurd MD [address] [place] [address] PCP - General 04/25/10
--- OUTSIDE RECORDS SUMMARY | 2024-04-08 08:15 | XMS_ITS | Encounter Summary ---
Author Organization [facility] [place] [address] Care Team Providers Care Vice President Of Development Name Role Phone Julieta Hurd MD Primary Care Provider [phone] Reason for Visit * Reason Comments Skin Check * Consultation (Routine) - Specialty Diagnoses / Procedures Referred By Contkeyonna t Referred To Contact Dermatology Procedures acute papular rash Flavio Wick, DO [address] [place] [address] Tae Moody MD [address] [place] [address], [facility] [place] [address] Referral ID Status Reason Start Date Expiration Date V isits Requested Visits Authorized [id number] 11/29/2015 11/28/2016 1 1 Encounter Details Date Type Department Care Team (Late st Contact Info) Description 03/13/2016 3:30 PM EDT Office Visit Dermatology at [address] [phone] Tae Moody MD [address] [place] [address], [facility] [place] [address] Dermatitis Social History Tobacco Use Types Packs/Day Years Used Date Smoking Tobacco: Former Smokeless Tobacco: Current Chew Sex and Gender Information Value Date Recorded Sex Assigned at Not on file Gender Identity Not on file Sexual Orientation Not on file documented as of this encounter Progress Notes * Tae Moody MD - 03/13/2016 3:30 PM EDT PROBLEM: Papular dermatitis. 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 It has been present under his arms, on the flanks, under his belt, and a few patches on the posterior thighs and popliteal fossae areas. He had been seen on several occasions by Dr. Wick, who has treated him with scabetic therapies, given him doxycycline and a tapering course of prednisone. Unfortunately, the rash continues. He says that the rash began before getting a hot tub at home. He does admit; however, that they are having difficulty keeping the pH within the recommended limits. His medications include omeprazole, betamethasone dipropionate solution for his scalp. He washes with Dial soap. PHYSICAL EXAMINATION: Reveals a pleasant 70-year-old gentleman who has erythematous macules and healing papules present in the distribution as noted above. There are not papular pustules, although it certainly seems the distribution would seem reminiscent of a bacterial folliculitis. A/P: Erythematous pruritic papular dermatitis, axillary vaults, flanks, under belt line, and posterior thighs/popliteal fossae. A. Asked the patient to redouble his efforts to maintain the appropriate pH in his hot tub. B. I would like to see the patient back in a month again. If he is just flaring/developing new lesions, I will biopsy one of these. C. If improving still at that point, as he has been for the last month, he may cancel that appointment. I will follow him back on a p.r.n. basis. Explained that today I am unable to make a definitive diagnosis based on the clinical presentation. Biopsy of quiescent or healing lesions would really be counterproductive so return to clinic here 1 month. CC: Flavio Wick DO documented in this encounter Plan of Treatment Not on file documented as of this encounter Visit Diagnoses Diagnosis Dermatitis Contact dermatitis and other eczema, due to unspecified cause documented in this encounter Care Teams Vice President Of Development Relationship Specialty Start Date End Date Julieta Hurd MD [address] [place] [address] PCP - General 04/25/10 documented as of this encounter
--- NOTE | 2024-04-08 08:24 | W.ED.GENAD ---
Discharge Plan Disposition Patient Disposition: Home Condition: Good Discharge Details Clinical Impression: Laceration of thumb, Finger fracture, left Primary Care Provider: Ibrahima Walton ED Provider: Samantha Alonzo Home Meds and New Rx's Prescriptions: New cephalexin 500 mg capsule 500 mg PO QID 4 Days Qty: 16 0RF Continued omeprazole 20 mg capsule,delayed release(DR/EC) 20 mg PO DAILY Qty: 90 3RF fluocinonide 0.05 % solution 1 applic topical BID-QID PRN (Reason: rash) Qty: 60 1RF metformin 500 mg tablet 500 mg PO BID Qty: 180 3RF metoprolol succinate 25 mg capsule,sprinkle,ER 24hr 25 mg PO DAILY Qty: 90 3RF epinephrine 0.3 mg/0.3 mL auto-injector 0.3 mg IM PRN Qty: 1 3RF aspirin 81 mg capsule 81 mg PO DAILY cetirizine [Allergy Relief (cetirizine)] 5 mg tablet 5 mg PO DAILY PRN atorvastatin 80 mg tablet 80 mg PO DAILY Qty: 90 4RF triamcinolone acetonide 0.1 % cream 1 applic topical BID Qty: 80 2RF clopidogrel 75 mg tablet 75 mg PO DAILY Qty: 90 3RF Discharge Instructions Instructions: Finger Fracture ED, Laceration Repair With Stitches ED Additional Instructions: Please keep wound clean, dry, covered. Tylenol as needed for discomfort. Please monitor wound for signs infection including redness, warmth, drainage, increased pain, fever/chills. If you develop these or other new/worsening symptoms please seek care urgently once again. Please keep current dressing on for the next 24 hours then apply splint to help immobilize for possible fracture we discussed. I would like you to continue to use the splint until seen by your primary care once again in 2 weeks. At that time, they may want to repeat imaging to confirm suspected fracture which would mean that you would then continue with the splint. Please return in 7-10 days for wound reevaluation and suture removal. Please elevate the extremity to help with swelling. Please take probiotics while taking your antibiotic. Referrals: Ibrahima Walton, TRANSMITTER ENGINEER IN CHARGE [Primary Care Provider] - [facility] General Date/Time Provider Initiated Documentation: 04/08/24 08:09. Limitations to Documentation: no limitations. Information obtained by: patient, family and RN notes reviewed. History of Present Illness 79 year old M presents to the emergency department with the chief complaint of laceration left thumb, described as moderate, with intensity rated at 4. Quality is described as aching and sharp, and is localized to the upper extremity. Patient reports no radiation. Patient started experiencing this day(s) (yesterday, about 14hrs prior to arrival) and it has been constant. Immobilization improves symptom(s), Movement worsens symptoms . Patient notes no other symptoms.. Patient did receive the following treatments prior to arrival, none Related Data Home Medications ?Medication ?Instructions ?Recorded ?Confirmed triamcinolone acetonide 0.1 % 1 applic topical BID #80 grams 01/10/22 04/08/24 topical cream fluocinonide 0.05 % topical 1 applic topical BID-QID PRN rash 09/27/23 04/08/24 solution #60 mL aspirin 81 mg capsule 81 mg PO DAILY 10/16/23 04/08/24 cetirizine 5 mg tablet (Allergy 5 mg PO DAILY PRN 10/16/23 04/08/24 Relief (cetirizine)) atorvastatin 80 mg tablet 80 mg PO DAILY #90 tabs 11/08/23 04/08/24 clopidogrel 75 mg tablet 75 mg PO DAILY #90 tabs 01/02/24 04/08/24 epinephrine 0.3 mg/0.3 mL 0.3 mg (0.3 mL) IM PRN #1 ea 01/02/24 04/08/24 injection, auto-injector metformin 500 mg tablet 500 mg PO BID #180 tabs 01/02/24 04/08/24 metoprolol succinate 25 mg capsule 25 mg PO DAILY #90 caps 01/02/24 04/08/24 sprinkle, ext. release 24 hr omeprazole 20 mg capsule,delayed 20 mg PO DAILY #90 caps 04/06/24 04/08/24 release cephalexin 500 mg capsule 500 mg PO QID 4 days #16 caps 04/08/24 Previous Rx's ?Medication ?Instructions ?Recorded triamcinolone acetonide 0.1 % 1 applic topical BID #80 grams 01/10/22 topical cream fluocinonide 0.05 % topical 1 applic topical BID-QID PRN rash 09/27/23 solution #60 mL atorvastatin 80 mg tablet 80 mg PO DAILY #90 tabs 11/08/23 clopidogrel 75 mg tablet 75 mg PO DAILY #90 tabs 01/02/24 epinephrine 0.3 mg/0.3 mL 0.3 mg (0.3 mL) IM PRN #1 ea 01/02/24 injection, auto-injector metformin 500 mg tablet 500 mg PO BID #180 tabs 01/02/24 metoprolol succinate 25 mg capsule 25 mg PO DAILY #90 caps 01/02/24 sprinkle, ext. release 24 hr omeprazole 20 mg capsule,delayed 20 mg PO DAILY #90 caps 04/06/24 release cephalexin 500 mg capsule 500 mg PO QID 4 days #16 caps 04/08/24 Allergies Allergy/AdvReac Type Severity Reaction Status Date / Time venom-honey bee Allergy Severe HIVES Verified 04/08/24 08:14 General Stated Complaint: Laceration ANY: 4 Review of Systems Constitutional Constitutional: Reports as per HPI and Denies fever(s) Musculoskeletal Musculoskeletal: Reports as per HPI Integumentary/Breasts Skin/Breast: Reports as per HPI Neurologic Neurologic: Reports as per HPI, Denies sensory deficit and Denies paresthesias Exam Const General: cooperative, healthy appearing, comfortable, no acute distress and well developed Nutritional Appearance: average body habitus and well nourished Orientation: alert and awake Resp Effort & Inspection: normal respiratory effort, able to speak in complete sentences and no respiratory distress Cardio Rate: regular rate Rhythm: regular rhythm Skin Trauma: laceration Neuro General: patient alert and patient awake Cognition: normal cognition Speech: speech normal Gait: normal gait Sensory Exam: no sensory deficits noted Extrem Hand/finger images: 1. Area of 2.5 cm laceration. Laceration is clotted, difficult to evaluate the depth or complexity. Fairly linear. It does abut the nail but the nail itself does not appear to be injured, no broken nail, damage to the nailbed or subungual hematoma. No active bleeding. This is not over the joint space and patient is able to flex and extend. He has sensation distal to the laceration. He does some discomfort with palpation over the joint itself which is proximal to the laceration. Course Vital Signs Vital signs: Vital Signs Temperature 36.6 C 04/08/24 08:11 Pulse 50 L 04/08/24 08:11 Respiratory Rate 12 04/08/24 08:11 Blood Pressure 143/75 H 04/08/24 08:11 Pulse Oximetry 99 04/08/24 08:11 Temperature 36.6 C 04/08/24 08:11 Temperature Source Oral 04/08/24 08:11 Pulse 50 L 04/08/24 08:11 Respiratory Rate 12 04/08/24 08:11 Respiratory Effort Normal, Non-Labored 04/08/24 08:12 Blood Pressure 143/75 H 04/08/24 08:11 Blood Pressure Position Sitting 04/08/24 08:11 Pulse Oximetry 99 04/08/24 08:11 Oxygen Delivery Method Room Air 04/08/24 08:11 Oxygen Flow Rate 0 04/08/24 08:11 Pain Level 4 04/08/24 08:11 Procedures Laceration Laceration 1: Site: hand Side (If applicable): left Size (cm): 2.5 Description: linear Depth: simple, single layer Local anesthetic: Lidocaine 1% Amount of anesthesia used (mL): 5 Pre-repair: wound explored, irrigated extensively and deep structures intact Skin layer closed with: other (prolene) Size (cm): 5-0 Number of sutures: 5 Technique: simple, interrupted and horizontal mattress Medical Decision Making Patient is a pleasant 71-year-old [id number]-[id number] male presenting today, accompanied by significant other, with chief complaint of laceration to the left thumb. He reports that last night he was releasing his crossbow when it struck his thumb causing laceration. States that he had large amount of bleeding, patient is on Plavix and aspirin. Put on a compressive dressing and left this on for the evening. He denies other injury at the time of the incident. Denies any numbness or tingling. States he does have some discomfort particularly with movement of the joint. Patient is up-to-date on tetanus. On exam, patient appears nontoxic. He is resting comfortably no acute distress. He has a 2.5 cm linear laceration wrapping around the ulnar side of his left thumb. The nail is intact and undamaged. Sensation is intact proximal and distal to the wound. Patient is quite tender over the joint even though the laceration is more in the midportion of the distal phalanx. At this in line as well as the mechanism of injury, we will obtain an x-ray to evaluate for any potential bony abnormality such as fracture. He does have good range of motion. No evidence of neurovascular damage. Reviewed XR, waiting for read. Question avulsion proximally but this is not near the laceration itself, but would correlate wit [facility] discomfort over lito joint space. Does not appear to be open fracture. Patient and I discussed with/benefits, expected procedural steps as well as alternatives for closure. Was understanding and wished to proceed with suture closure. Given the timeframe, will purposely be some gaps between the sutures to allow for any drainage that may occur but no obvious evidence to suggest infection at this time. With the copious bleeding, the likelihood for the patient to have infection currently. Again, while I am suspicious for a possible avulsion fracture, I do believe that this translates with the laceration but will certainly examine this further during the procedure. Please see procedure note. Laceration was anesthetized with digital block using 1% lidocaine plain. Wound was explored to base in a bloodless field no foreign body or debris appreciated. Wound is fairly superficial. No deep structure involvement is appreciated. A singular bleeding vessel was identified and cauterized. Finger tourniquet was then utilized to further improve [id number]. Wound was closed using 5-0 Prolene using both simple interrupted and horizontal mattress stitches. Patient tolerated this well. Sterile dressing applied. Patient I discussed continued wound care. As there is question of possible fracture, will place on antibiotic prophylactically. Encouraged use of probiotic. Strict return precautions were discussed. Encourage close follow-up with primary care with likely subsequent reimaging of the thumb. Will hold off on referral to orthopedics this is unclear what is going on with the finger at this time and certainly does not look to be surgical in nature. However, should this be required in the future after subsequent imaging, will defer to primary care for referral. I did encourage patient to return here in 7 to 10 days for reevaluation of wound as well as suture removal. While bulky dressing was applied at this time, I we will send home with a splint that he can apply after removal of this dressing in 24 hours. All his questions and concerns were addressed and patient is in agreement this plan. This documentation was generated using Logglyation system, please disregard any oddities of phrase or misspellings. Quality:SDOH Health Related Social Needs: No Data to Display PFSH All Active Problems (Updated 04/08/24 @ 09:49 by GUSTAVO Bush) Finger fracture, left (Acute) Laceration of thumb (Acute) Coronary artery disease (Chronic) STEMI (ST elevation myocardial infarction) (Acute) First week of October 2023 Psoriasis (Chronic) Leukopenia (Acute) 10/2021-, mild, suggest checking yearly GERD (gastroesophageal reflux disease) (Chronic) 2014-EGD. erosive esophagitis Diabetes (Chronic) Thrombocytopenia (Chronic) Mild, likely ITP, suggest yearly check Polyp of colon (Acute 02/13/12) TUBULAR ADENOMA 2014-Tubular Adenoma Low back pain (Acute) Gout involving toe of left foot (Acute 09/21/16) BPH (benign prostatic hyperplasia) (Acute) MILD Medical History Past history of chewing tobacco use quit about 2016 Acute cholecystitis Heavy alcohol use (02/26/17) one drink per day since 2019 Adenomatous colon polyp Surgical History Hx laparoscopic cholecystectomy Extraction of cataract Family History Mother , AGE 92 Diabetes Heart disease Hyperlipidemia Stroke Father , age 59 No problems noted. Sister No problems noted. Brother , age 81 Heart disease Stroke Son No problems noted. Daughter No problems noted. Daughter No problems noted. 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 Pets and animals: No Sexually active: Yes Do you think of yourself as: straight/heterosexual Current gender identity: male What is your relationship status?: living with partner How often do you talk on the phone with friends or family?: three or more times per week How often do you get together with friends or relatives?: three or more times per week How often do you attend congregational or druze services?: 1-3 times per year Do you belong to any clubs or organized social groups?: no Panel score (0-1 are the most socially isolated patients): 2 Dorothy/Restorationist: Presybeterian Special dorothy needs: No Seatbelt use: sometimes Drive intox or ride w/intox milk delivery driver: No Do you feel safe at home: Yes Do you feel safe in your relationship?: Yes
[2024-04-08] MEDS: Lidocaine 1% Multi-Dose 50 ML VIAL (09:29)
== END 2024-04-08 10:02 | disposition home or self-care (01) ==
PROVIDERS: Emergency Provider Physician Assistant; PCP Nurse Practitioner Family
DX: S62.525B Nondisplaced fracture of distal phalanx of left thumb, initial encounter for open fracture (principal); I25.10 Atherosclerotic heart disease of native coronary artery without angina pectoris; I25.2 Old myocardial infarction; E11.9 Type 2 diabetes mellitus without complications; Z79.84 Long term (current) use of oral hypoglycemic drugs; Z79.82 Long term (current) use of aspirin; Z79.02 Long term (current) use of antithrombotics/antiplatelets; W26.8XXA Contact with other sharp object(s), not elsewhere classified, initial encounter; Y93.79 Activity, other specified sports and athletics
CPT/HCPCS: 12002; 99283; 73140; J2003

== ENCOUNTER → 2024-10-27 10:45 | Outpatient (BNVA) | payer MEDICARE, SELFPAY | PROVIDERS: PCP Nurse Practitioner Family; Visit Provider Internal Medicine Cardiovascular Disease | DX: I25.10 Atherosclerotic heart disease of native coronary artery without angina pectoris (principal) | CPT/HCPCS: 99213 ==